=== PATIENT | female | born 1975 | race Caucasian/White ===

== ENCOUNTER 2017-06-30 22:47 | Emergency (ER) | payer SELFPAY ==
[2017-06-30 22:54] VITALS: BP 131/60; PULSE 93; RESP 18; TEMP 36.8; O2SAT 97; BMI 47.5
--- NOTE | 2017-06-30 23:01 | CT_ITS ---
CT abdomen pelvis wo con COMPARISON: CT scan abdomen pelvis without contrast 04/27/2012 HISTORY: ] Right upper Quadrant pain TECHNIQUE: Multiaxial scans obtained from hemidiaphragms the pelvic floor and were performed without IV or oral contrast. Sagittal and coronal reformats were evaluated as well. FINDINGS: The lower lung benz are clear. The liver is grossly normal in size of the distal prominent right lobe of the liver likely a Lety's lobe variant. Spleen stomach and pancreas appear grossly normal. There has been a previous cholecystectomy. The adrenal glands are normal. The kidneys are normal in size and there are no calculi and is no obstructive uropathy. Small bowel is normal. Do not definitely identify the appendix but there are no pericecal inflammatory changes. There is a tiny umbilical hernia containing fat only. There is a moderately large amount stool throughout the entire colon. The uterus is upper limits of normal in size and in the midline, the urinary bladder is partially decompressed. There is no free fluid in the pelvis. IMPRESSION: Findings as described, no acute abdominal or pelvic pathology identified, I agree the [facility] report.
[2017-06-30 23:15] LABS: Microscopic, Urine URINE MICROSCOPIC (MICROSCOPIC)
[2017-06-30 23:16] LABS: Appearance,Urine CLEAR (Clear); Bilirubin,Urine Negative (Negative); Blood, Urine Negative (Negative); Color,Urine YELLOW (Yellow); Glucose,Urine (UA) Negative (Negative); Ketones,Urine TRACE (Negative); Leukocyte Esterase,Urine Negative (Negative); Nitrate,Urine Negative (Negative); PH,Urine 5.5 (5.0-8.5); Protein,Urine Negative (Negative); Specific Gravity, Urine >= 1.030 (1.005-1.030); Urobilinogen,Urine 0.2 EU/dl (0.2)
[2017-06-30 23:17] LABS: Basophils % 0.3 % (0.1-2.0); Eosinophils # 0.3 K/mm3 (0.0-0.4); Eosinophils % 2.5 % (0.1-12.0); Hematocrit 43.4 % (37.0-47.0); Hemoglobin 13.6 g/dL (12.2-16.2); Lymphocytes # 3.7 K/mm3 (0.7-4.5); Lymphocytes % 31.3 K/mm3 (10-50); Mean Corpuscular HGB Conc 31.4 g/dL (31.8-35.4); Mean Corpuscular Hemoglobin 28.2 pg (27.0-31.2); Mean Corpuscular Volume 89.9 fl (81-99); Mean Platelet Volume 7.4 fl (7.4-10.4); Monocytes # 0.4 K/mm3 (0.1-1.0); Monocytes % 3.3 % (1.7-9.3); Neutrophils # 7.4 K/mm3 (1.8-7.8); Neutrophils % 62.7 % (37.0-80.0); Platelet Count 397 K/mm3 (142-424); Red Blood Count 4.83 M/mm3 (4.20-5.40); Red Cell Distribution Width 14.4 % (11.5-17.5); White Blood Count 11.9 K/mm3 (4.8-10.8)
[2017-06-30 23:27] LABS: Alanine Aminotransferase 37 U/L (12-78); Albumin Level 3.5 gm/dL (3.4-5.0); Albumin/Globulin Ratio 0.8 (1.1-1.8); Alkaline Phosphatase 119 U/L (46-116); Amylase 68 U/L (25-125); Anion Gap 14.4 mEq/L (5-15); Aspartate Amino Transferase 29 U/L (15-37); Bilirubin,Total 0.4 mg/dL (0.2-1.0); Blood Urea Nitrogen 23 mg/dL (7-18); Calcium 8.8 mg/dL (8.5-10.1); Carbon Dioxide 28 mmol/L (21.0-32.0); Chloride 99 mmol/L (98-107); Creatinine Clearance Estimated 70 mL/min (0-300); Creatinine,Serum 0.84 mg/dL (0.55-1.02); Estimated Glomerular Filt Rate 75 ml/min (>60); GFR (African American) 90 ML/MIN (>60); Globulin 4.2 gm/dl (1.3-3.2); Glucose 130 mg/dL (74-106); Lipase 209 u/L (73-393); Potassium 3.4 mmoL/L (3.5-5.1); Sodium 138 mmol/L (136-145); Total Protein,Serum 7.7 gm/dL (6.4-8.2)
[2017-06-30 23:57] LABS: Bacteria,Urine 1+ /lpf; Calcium Oxalate Crystals,Urine 1+ /lpf
--- NOTE | 2017-06-30 23:57 | HMH.EDNVD ---
ED Disposition Clinical Impression: Abdominal pain Qualifiers: Abdominal location: right upper quadrant Qualified Code(s): R10.11 - Right upper quadrant pain Disposition: Home, Self-Care Condition on Discharge: Good Instructions: DI for Acute Abdomen Additional Instructions: see pcp for follow up Referrals: Herbert Haro [Primary Care Provider] - - Critical Care Critical Care Time: No Attestation: On 06/30/17, the high probability of a clinically significant, sudden or life threatening deterioration of the following system(s) required my full and direct attention, intervention and personal management. The time I documented below is in addition to time spent performing reported procedures but includes the following listed in this critical care notation. Medical Decision Making - Spencer Inquiry Pt receiving controlled substance: No Vital Signs: 06/30/17 22:54 Temperature 98.2 F Temperature Source Oral Pulse Rate [Left Brachial] 93 H Respiratory Rate 18 Blood Pressure [Left Arm] 131/60 Blood Pressure Mean [Left Arm] 83 Blood Pressure Source [Left Arm] Automatic Cuff Blood Pressure Position [Left Arm] Sitting 02 Sat by Pulse Oximetry 97 Oxygen Delivery Method Room Air - Lab Data Lab results reviewed: Yes: I reviewed the patient's lab results. Lab Results 06/30/17 23:03: Urine Color Yellow, Urine Appearance Clear, Urine pH 5.5, Ur Specific Cross >= 1.030, Urine Protein Negative, Urine Glucose (UA) Negative, Urine Ketones Trace, Urine Blood Negative, Urine Nitrate Negative, Urine Bilirubin Negative, Urine Urobilinogen 0.2, Ur Leukocyte Esterase Negative, Urine RBC 3-5, Urine WBC 3-5, Ur Squamous Epith Cells 5-10, Calcium Oxalate Crystal 1+, Urine Bacteria 1+ 06/30/17 23:03: WBC 11.9 H, RBC 4.83, Hgb 13.6, Hct 43.4, MCV 89.9, MCH 28.2, MCHC 31.4 L, RDW 14.4, Plt Count 397, MPV 7.4, Neut % (Auto) 62.7, Lymph % (Auto) 31.3, [place] % (Auto) 3.3, Eos % (Auto) 2.5, Baso % (Auto) 0.3, Neut # (Auto) 7.4, Lymph # (Auto) 3.7, [place] # (Auto) 0.4, Eos # (Auto) 0.3, Baso # (Auto) 0.0 06/30/17 23:03: Sodium 138, Potassium 3.4 L, Chloride 99, Carbon Dioxide 28, Anion Gap 14.4, BUN 23 H, Creatinine 0.84, Estimated Creat Clear 70, Estimated GFR 75, Est GFR ( Amer) 90, Glucose 130 H, Calcium 8.8, Total Bilirubin 0.4, AST 29, ALT 37, Alkaline Phosphatase 119 H, Total Protein 7.7, Albumin 3.5, Globulin 4.2 H, Albumin/Globulin Ratio 0.8 L, Amylase 68, Lipase 209 Result diagrams: 06/30/17 23:03 06/30/17 23:03 Orders (Tests/Meds): ORDERS Category Date Time Status CT abdomen pelvis wo con Stat Cat Scan 06/30/17 23:01 Taken - CT Data CT Scan: Abdomen, Pelvis Time Received: 01:[address] Reviewed: Yes: I have viewed the radiologist's interpretation Preliminary Findings: Normal/NAD Nausea/Vomiting/Diarrhea HPI - General Chief complaint: Abdominal Pain Stated complaint: pain in right side Time Seen by Provider: 06/30/17 23:30 Mode of Arrival: Ambulatory Limitations: No Limitations Description of Symptoms (Recalled from ER Triage Doc. by RN): RUQ ABD PAIN THAT STARTED EARLIER TODAY AND HAS PROGRESSIVELY GOTTEN WORSE. REPORTS IT FEELS LIKE IT IS PULLING AND TUGGING APART . - History of Present Illness HPI Narrative: pt with 1 day hx of rt upper abd pain with nausea and worse with mov MD complaint: nausea Onset (ago): day(s) Associated Abdominal Pain: Yes Location of pain: RUQ Severity: moderate Consistency: intermittent - Related Data Home Medications Medication Instructions Recorded Confirmed atorvastatin 40 mg tablet 40 mg PO ONCE 06/08/17 06/30/17 empagliflozin 10 mg tablet 10 mg PO QAM 06/08/17 06/30/17 esomeprazole magnesium 20 mg 20 mg PO ONCE cap 06/08/17 06/30/17 capsule,delayed release metformin 500 mg tablet 500 mg PO BID 06/08/17 06/30/17 paroxetine 20 mg tablet 10 mg PO QAM 06/08/17 06/30/17 spironolactone 25 mg tablet 25 mg PO ONCE tab 06/08/17 06/30/17 Bisoprol/Hydrochloro
--- NOTE | 2017-07-01 00:01 | ED_ITS ---
ED Disposition Clinical Impression: Abdominal pain Qualifiers: Abdominal location: right upper quadrant Qualified Code(s): R10.11 - Right upper quadrant pain Disposition: Home, Self-Care Condition on Discharge: Good Instructions: DI for Acute Abdomen Additional Instructions: see pcp for follow up Referrals: Herbert Haro [Primary Care Provider] - - Critical Care Critical Care Time: No Attestation: On 06/30/17, the high probability of a clinically significant, sudden or life threatening deterioration of the following system(s) required my full and direct attention, intervention and personal management. The time I documented below is in addition to time spent performing reported procedures but includes the following listed in this critical care notation. Medical Decision Making - Spencer Inquiry Pt receiving controlled substance: No Vital Signs: 06/30/17 22:54 Temperature 98.2 F Temperature Source Oral Pulse Rate [Left Brachial] 93 H Respiratory Rate 18 Blood Pressure [Left Arm] 131/60 Blood Pressure Mean [Left Arm] 83 Blood Pressure Source [Left Arm] Automatic Cuff Blood Pressure Position [Left Arm] Sitting 02 Sat by Pulse Oximetry 97 Oxygen Delivery Method Room Air - Lab Data Lab results reviewed: Yes: I reviewed the patient's lab results. Lab Results 06/30/17 23:03: Urine Color Yellow, Urine Appearance Clear, Urine pH 5.5, Ur Specific [place] >= 1.030, Urine Protein Negative, Urine Glucose (UA) Negative, Urine Ketones Trace, Urine Blood Negative, Urine Nitrate Negative, Urine Bilirubin Negative, Urine Urobilinogen 0.2, Ur Leukocyte Esterase Negative, Urine RBC 3-5, Urine WBC 3-5, Ur Squamous Epith Cells 5-10, Calcium Oxalate Crystal 1+, Urine Bacteria 1+ 06/30/17 23:03: WBC 11.9 H, RBC 4.83, Hgb 13.6, Hct 43.4, MCV 89.9, MCH 28.2, MCHC 31.4 L, RDW 14.4, Plt Count 397, MPV 7.4, Neut % (Auto) 62.7, Lymph % (Auto ) 31.3, [place] % (Auto) 3.3, Eos % (Auto) 2.5, Baso % (Auto) 0.3, Neut # (Auto) 7.4, Lymph # (Auto) 3.7, [place] # (Auto) 0.4, Eos # (Auto) 0.3, Baso # (Auto) 0.0 06/30/17 23:03: Sodium 138, Potassium 3.4 L, Chloride 99, Carbon Dioxide 28, Anion Gap 14.4, BUN 23 H, Creatinine 0.84, Estimated Creat Clear 70, Estimated GFR 75, Est GFR ( Amer) 90, Glucose 130 H, Calcium 8.8, Total Bilirubin 0.4, AST 29, ALT 37, Alkaline Phosphatase 119 H, Total Protein 7.7, Albumin 3.5 , Globulin 4.2 H, Albumin/Globulin Ratio 0.8 L, Amylase 68, Lipase 209 Result diagrams: 06/30/17 23:03 06/30/17 23:03 Orders (Tests/Meds): ORDERS Category Date Time Status CT abdomen pelvis wo con Stat Cat Scan 06/30/17 23:01 Taken - CT Data CT Scan: Abdomen, Pelvis Time Received: 01:[address] Reviewed: Yes: I have viewed the radiologist's interpretation Preliminary Findings: Normal/NAD Nausea/Vomiting/Diarrhea HPI - General Chief complaint: Abdominal Pain Stated complaint: pain in right side Time Seen by Provider: 06/30/17 23:30 Mode of Arrival: Ambulatory Limitations: No Limitations Description of Symptoms (Recalled from ER Triage Doc. by RN): RUQ ABD PAIN THAT STARTED EARLIER TODAY AND HAS PROGRESSIVELY GOTTEN WORSE. REPORTS IT FEELS LIKE IT IS PULLING AND TUGGING APART . - History of Present Illness HPI Narrative: pt with 1 day hx of rt upper abd pain with nausea and worse with mov MD complaint: nausea Onset (ago): day(s) Associated Abdominal Pain: Yes Location of pain: RUQ S
[2017-07-01 01:13] VITALS: BP 136/74; PULSE 72; RESP 19; TEMP 36.8; O2SAT 96
== END 2017-07-01 01:14 | disposition home or self-care (01) ==
PROVIDERS: Emergency Provider Emergency Medicine; Family Provider Internal Medicine; PCP Internal Medicine
DX: R10.11 Right upper quadrant pain (principal); Z79.84 Long term (current) use of oral hypoglycemic drugs; E11.9 Type 2 diabetes mellitus without complications; K21.9 Gastro-esophageal reflux disease without esophagitis; E78.5 Hyperlipidemia, unspecified; I10 Essential (primary) hypertension; Z90.49 Acquired absence of other specified parts of digestive tract; Z87.891 Personal history of nicotine dependence; F32.9 Major depressive disorder, single episode, unspecified
CPT/HCPCS: 74176; 80053; 81001; 82150; 83690; 85025; 99283

== ENCOUNTER → 2017-11-09 13:43 | Outpatient (CLI) | payer OTHER, SELFPAY ==
--- NOTE | 2017-11-09 13:45 | MM_ITS ---
MM Dig mamm BI DX w/CAD COMPARISON: Digital mammograms 08/20/2015 and digital right mammogram 04/09/2016 INDICATION: There is a history of breast cancer patient's mother diagnosed at age 63. The patient complains of intermittent clear leakage left nipple. TECHNIQUE: Standard MLO and CC views were obtained of both breasts. FINDINGS: The breasts are composed primarily of fat with very minimal scattered fibroglandular densities in each breast. There is a stable round nodular density central portion of the right breast unchanged from previous exams and noted to be a small cyst on ultrasound performed 04/09/2016. There is a mole marker on each breast. There is no suspicious lesion and there are no suspicious microcalcifications. IMPRESSION: Fatty type breast parenchyma no suspicious lesion seen BI-RADS Category: 2 Benign Finding(s) RECOMMENDED FOLLOW-UP: 1YR - 1 YEAR FOLLOW-UP (A letter has been sent to the patient regarding results of the study.)
--- NOTE | 2017-11-09 13:45 | US_ITS ---
US transvaginal Ordering Physician: Chiara Vidal MD Patient Age: 42 years: Female HISTORY: ITS.REASON: US T/V - Pelvic Pain Severe cramping TECHNIQUE: Transvaginal pelvic ultrasound COMPARISON CT abdomen and pelvis FINDINGS : UTERUS. Slight retroverted. Normal sized. 7.4 cm length x 3.7 cm x 5.3 cm wide.. Moderate endometrial stripe is measured 7.6 mm AP & most evident towards fundus Ovaries within normal limits bilaterally with color Doppler normal flow. Right ovary 2.1 x 1.4 x 2.2 cm. Left ovary 2.2 x 1.6 x 1.0 cm No fluid in cul-de-sac IMPRESSION: Uterus slightly retroverted with moderate endometrial stripe Ovaries appear normal in size no fluid in cul-de-sac
== END ==
PROVIDERS: Family Provider Internal Medicine; PCP Internal Medicine; Visit Provider Obstetrics & Gynecology
DX: R10.2 Pelvic and perineal pain (principal); N64.4 Mastodynia; N64.52 Nipple discharge
CPT/HCPCS: 76830; 77066

== ENCOUNTER 2017-12-12 13:00 | Outpatient (RCR) | payer OTHER, SELFPAY ==
--- NOTE | 2017-12-05 13:47 | HMH.PTOPEV ---
PT Outpatient Evaluation Rehab PT Outpatient Evaluation Start: 12/05/17 13:36 Freq: Status: Active Protocol: Document 12/05/17 13:36 DANIELLE (Rec: 12/05/17 13:46 DANIELLE [id number]) Electronically Signed By Jacob Mccloud, PT 12/05/17 13:36 Outpatient Therapy Subjective History Subjective History Pt reports h/o chronic LBP since 2009, with most recent exacerbation beginning ~2 weeks insidious onset. Pt reports R>L sided LBP with intermittent radicular s/s down R LE into anterior/ lateral thigh area. Pt reports MRI of lumbar spine has revealed DDD, and disc buldges . Chief Complaint Pain Spasms Stiff Weakness Symptom Type Ache Throb Sharp Dull Symptoms Relieved By Prescription Meds Symptoms Aggravated By Standing Physical Activity Walking Lifting Prior Functional Limitations Lifting Housework Standing Walking Current Functional Limitations Lifting Housework Standing Walking Bending/Stooping Symptom Description Constant but Variable Level of pain today (0-10) 3 Pain scale - at its best (0-10) 2 Pain scale - at its worst (0-10) 10 Lumbopelvic Eval Posture Thoracic Spine Posture Standing Position Increased Kyphosis Lumbar Spine Posture Standing Position Increased Lordosis Assistive device Assistive Devices None / NA Gait Observation General Gait Pattern Observation Antalgic Gait Palapation tenderness bilateral thoracic spinal tenderness Yes: 3/4 lumbar spinal tenderness Yes: 3/4 paraspinal tenderness Yes: 3/4 buttock tenderness Yes: 4/4 Lumbar/Sacral Palpation Findings Tenderness Muscle Guarding Lumbar/Sacral Palpation Overall Comment hyper- B PIRI MM Accessory Movement T-spine Vertebrae Accessory Movements Central P/A [place] that Elicit Symptoms T10 bilateral T11 bilateral T12 bilateral L-spine Jaswinder
== END 2017-12-12 13:01 | disposition home or self-care (01) ==
LOC: PT 13:00
PROVIDERS: Family Provider Internal Medicine; PCP Internal Medicine; Visit Provider Internal Medicine
DX: M54.31 Sciatica, right side (principal)
CPT/HCPCS: 97010; 97014; 97035; 97110; 97163; G0283

== ENCOUNTER → 2018-05-05 09:35 | Outpatient (CLI) | payer OTHER, SELFPAY | PROVIDERS: PCP Internal Medicine; Visit Provider Internal Medicine | DX: R06.02 Shortness of breath (principal) | CPT/HCPCS: 94060; 94640 ==

== ENCOUNTER 2019-08-19 13:49 | Emergency (ER) | payer OTHER, SELFPAY ==
[2019-08-19 13:50] VITALS: BP 135/57; PULSE 81; RESP 18; TEMP 36.8; O2SAT 98; BMI 44.2
--- NOTE | 2019-08-19 14:00 | CT_ITS ---
PROCEDURE: CT CHEST WO CON CLINICAL INDICATION: PAIN Left-sided chest pain radiating into the COMPARISON: CT ABDOMEN PELVIS WO CON from 08/19/2019 TECHNIQUE: Axial images obtained with sagittal and coronal reformats. All CT scans at the facility use one or more dose reduction, viz: automated exposure control, ma/kV adjustment per patient size (including targeted exams where dose is matched to indication, i.e. head), or iterative reconstruction technique. FINDINGS: HEART AND MEDIASTINAL STRUCTURES: Unremarkable. LUNGS AND PLEURAL SPACES: There is a calcified granuloma in the lingula. The lungs are otherwise clear. BONY STRUCTURES: No acute bony abnormalities apparent. UPPER ABDOMEN: Fatty liver ADDITIONAL FINDINGS: No other significant abnormalities. IMPRESSION: No acute finding Dictated by: Eduardo Cavanaugh MD 08/20/2019 09:31 Electronically signed by Eduardo Cavanaugh MD in [place] 08/20/2019 09:31
--- NOTE | 2019-08-19 14:00 | CT_ITS ---
PROCEDURE: CT ABDOMEN PELVIS WO CON CLINICAL INDICATION: PAIN Abdominal pain, left upper quadrant pain radiating into the COMPARISON: ABDPELWO CT abdomen pelvis wo con from 07/01/2017 TECHNIQUE: Axial images obtained with sagittal and coronal reformats. All CT scans at the facility use one or more dose reduction, viz: automated exposure control, ma/kV adjustment per patient size (including targeted exams where dose is matched to indication, i.e. head), or iterative reconstruction technique. FINDINGS: LOWER THORAX: No acute finding ABDOMEN & PELVIS: There is a hepatomegaly measuring 25 cm cephalad caudad with diffuse hepatic steatosis. There are post cholecystectomy changes. The spleen, adrenal glands, pancreas, and kidneys have an unremarkable appearance. No renal or ureteral calculi. There are a few small periportal lymph nodes measuring up to 1.8 by 1.2 cm. No evidence of appendicitis. No intestinal obstruction or free air. No evidence of diverticulitis. No pelvic mass or abnormal fluid collection. No acute bony anomalies. Small umbilical hernia noted containing fat. Soft tissue edema is noted in the lumbar region centrally IMPRESSION: Hepatomegaly with fatty liver No acute finding. Dictated by: Eduardo Cavanaugh MD 08/20/2019 09:37 Electronically signed by Eduardo Cavanaugh MD in [place] 08/20/2019 09:37
--- NOTE | 2019-08-19 14:00 | HMH.EDGENADL ---
ED Disposition Clinical Impression: Atypical chest pain, Rib pain on left side Disposition: Home, Self-Care Condition on Discharge: Good - Critical Care Critical Care Time: No Attestation: On , the high probability of a clinically significant, sudden or life threatening deterioration of the following system(s) required my full and direct attention, intervention and personal management. The time I documented below is in addition to time spent performing reported procedures but includes the following listed in this critical care notation. Medical Decision Making - Medical Records Medical records reviewed: Yes: I reviewed the patient's medical records. - Spencer Inquiry Pt receiving controlled substance: No Vital Signs: 08/19/19 13:50 Temperature 98.3 F Temperature Source Oral Pulse Rate [Right Radial] 81 Respiratory Rate 18 Blood Pressure [Right Arm] 135/57 L Blood Pressure Mean [Right Arm] 83 Blood Pressure Source [Right Arm] Automatic Cuff Blood Pressure Position [Right Arm] Sitting 02 Sat by Pulse Oximetry 98 Oxygen Delivery Method Room Air - Lab Data Lab results reviewed: Yes: I reviewed the patient's lab results. Lab Results 08/19/19 15:00: WBC 12.3 H, RBC 4.69, Hgb 13.4, Hct 41.4, MCV 88.2, MCH 28.5, MCHC 32.3, RDW 14.8, Plt Count 383, MPV 7.7, Neut % (Auto) 66.8, Lymph % (Auto) 27.2, [place] % (Auto) 2.3, Eos % (Auto) 2.8, Baso % (Auto) 0.9, Neut # (Auto) 8.2 H, Lymph # (Auto) 3.4, [place] # (Auto) 0.3, Eos # (Auto) 0.4, Baso # (Auto) 0.1 08/19/19 15:00: Sodium 140, Potassium 3.6, Chloride 98, Carbon Dioxide 32 H, Anion Gap 13.6, BUN 12, Creatinine 0.60, Estimated Creat Clear 95, Estimated GFR 109, Est GFR ( Amer) 131, Glucose 170 H, Calcium 9.8, Troponin I < 0.01 Result diagrams: 08/19/19 15:00 08/19/19 15:00 Orders (Tests/Meds): ED MEDICATIONS Discontinued Medications Generic Name Dose Route Start Last Admin Trade Name Freq PRN Reason Stop Dose Admin Ketorolac Tromethamine 30 mg 08/19/19 15:05 08/19/19 15:13 Toradol 30mg/Ml Vial IV 08/19/19 15:06 30 mg ONCE ONE Administration Ondansetron HCl 4 mg 08/19/19 15:05 08/19/19 15:13 Zofran 4mg/2ml Vial IV 08/19/19 15:06 4 mg ONCE ONE Administration ORDERS Category Date Time Status CT abdomen pelvis wo con Stat Cat Scan 08/19/19 14:[address] chest wo con Stat Cat Scan 08/19/19 14:00 Taken Troponin I Q3H Lab 08/19/19 17:00 Ordered Troponin I Q3H Lab 08/19/19 20:00 Ordered - CT Data CT Scan: Abdomen, Chest Time Received: 16:00 Preliminary Findings: Normal/NAD - ECG Data Tracing #1 I reviewed this ECG and interpreted as documented below: Normal Sinus Rhythm: Yes General Adult HPI - General Chief complaint: PAIN Stated complaint: PAIN Time Seen by Provider: 08/19/19 14:01 Mode of Arrival: Wheelchair Limitations: No Limitations Description of Symptoms (Recalled from ER Triage Doc. by RN): PT HAD TO BE ASSISTED OUT OF CAR VIA W/C BY NURSE. 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 PT DENIES ANY KNOWN INJURY OR STRAINEOUS ACTIVITY. - History of Present Illness HPI narrative: 44-year-old female presents with left upper quadrant pain extending up to the sixth rib on her chest. She states this pain started about 20 minutes prior to arrival here in the ED. She describes the pain as sharp. She rates the pain 7 out of 10. She states exacerbating factors include movement and deep breaths. Alleviating factors include rest. Patient did state that she has had TIAs in the past but has not had any cardiac history but is an uncontrolled diabetic, uncontrolled hypertension, and on cold controlled hyperlipidemic. She denies any recent fever shakes or chills she denies any nausea vomiting diarrhea she did not denies any sore throat headache myalgias arthralgias. - Related Data Home Medication
--- NOTE | 2019-08-19 14:06 | ECG_ITS ---
APPROVED REPORT Exam: Resting ECG HR:78 bpm ECG Measurements Heart Rate 78 AXES MS 186 P 41 QRSd 78 QRS 40 QT 366 T 28 QTc 417 <Conclusion> Normal sinus rhythm Normal ECG Electronically signed by : Grant Riley, 08/20/2019 20:58:58
--- NOTE | 2019-08-19 14:08 | PC.NURSE ---
PT TO RAD
[2019-08-19 15:13] LABS: Basophils # 0.1 K/mm3 (0-0.2); Basophils % 0.9 % (0.1-2.0); Eosinophils # 0.4 K/mm3 (0.0-0.4); Eosinophils % 2.8 % (0.1-12.0); Hematocrit 41.4 % (37.0-47.0); Hemoglobin 13.4 g/dL (12.2-16.2); Lymphocytes # 3.4 K/mm3 (0.7-4.5); Lymphocytes % 27.2 % (10-50); Mean Corpuscular HGB Conc 32.3 g/dL (31.8-35.4); Mean Corpuscular Hemoglobin 28.5 pg (27.0-31.2); Mean Corpuscular Volume 88.2 fl (81-99); Mean Platelet Volume 7.7 fl (7.4-10.4); Monocytes # 0.3 K/mm3 (0.1-1.0); Monocytes % 2.3 % (1.7-9.3); Neutrophils # 8.2 K/mm3 (1.8-7.8); Neutrophils % 66.8 % (37.0-80.0); Platelet Count 383 K/mm3 (142-424); Red Blood Count 4.69 M/mm3 (4.20-5.40); Red Cell Distribution Width 14.8 % (11.5-17.5); White Blood Count 12.3 K/mm3 (4.8-10.8)
[2019-08-19 15:20] LABS: Anion Gap 13.6 mEq/L (5-15); Blood Urea Nitrogen 12 mg/dl (7-17); Calcium 9.8 mg/dl (8.4-10.2); Carbon Dioxide 32 mmol/L (22.0-30.0); Chloride 98 mmol/L (98-107); Creatinine Clearance Estimated 95 mL/min (50-200); Estimated Glomerular Filt Rate 109 ml/min (>60); GFR (African American) 131 ML/MIN (>60); Glucose 170 mg/dl (74-100); Potassium 3.6 mmoL/L (3.5-5.1); Sodium 140 mmol/L (136-145)
--- NOTE | 2019-08-19 15:21 | PC.NURSE ---
CALLED FOR AN UPDATE
[2019-08-19 15:34] LABS: Troponin I < 0.01 ng/ml (0.00-0.034)
[2019-08-19 16:35] VITALS: BP 132/78; PULSE 78; RESP 20; TEMP 36.8; O2SAT 98
== END 2019-08-19 16:36 | disposition home or self-care (01) ==
PROVIDERS: Emergency Provider Family Medicine; PCP Internal Medicine
DX: R07.89 Other chest pain (principal); F41.8 Other specified anxiety disorders; E11.65 Type 2 diabetes mellitus with hyperglycemia; I10 Essential (primary) hypertension; E78.5 Hyperlipidemia, unspecified; K21.9 Gastro-esophageal reflux disease without esophagitis
CPT/HCPCS: 71250; 74176; 80048; 84484; 85025; 93005; 96374; 96375; 99283; J2405

== ENCOUNTER 2020-04-23 11:29 | Emergency (ER) | payer OTHER, SELFPAY ==
[2020-04-23 11:29] VITALS: BP 139/79; PULSE 91; RESP 16; TEMP 36.2; O2SAT 100; BMI 42.6
--- NOTE | 2020-04-23 11:57 | XR_ITS ---
PROCEDURE: XR CHEST PORTABLE CLINICAL HISTORY: COUGH/TESTING FOR COVID COMPARISON: CR CXR2 CHEST-AP VIEW ONLY from 04/27/2012 CR CXR CHEST(2 VIEWS-NOT PORTABLE) from 11/01/[address] CHEST WO CON from 08/19/2019 FINDINGS: The cardiomediastinal silhouette and pulmonary vascularity are within normal limits. The lungs are clear without infiltrates, suspicious nodules, or pleural effusions. No acute bony abnormalities. IMPRESSION: No acute findings. Dictated by: Eduardo Cavanaugh MD 04/23/2020 13:34 Eduardo Cavanaugh MD in [place] 04/23/2020 13:34
--- NOTE | 2020-04-23 12:13 | HMH.EDUTC ---
[facility] [place] Disposition Clinical Impression: Exposure to COVID-19 virus, Viral syndrome Acute bronchitis Qualifiers: Bronchitis organism: unspecified organism Qualified Code(s): J20.9 - Acute bronchitis, unspecified Disposition: Home, Self-Care Condition on Discharge: Good Instructions: DI for COVID-19 (Suspected or Confirmed ), Preventing the Spread of Coronavirus Discharge Instructions Additional Instructions: Drink plenty of fluids. Take tylenol for pain or fever. Return if you begin to have difficulty breathing. Follow up with your regular doctor. GO TO THE ER FOR ANY WORSENING SYMPTOMS Prescriptions: Albuterol Sulfate [Albuterol Sulfate Hfa] 2 puffs IH Q6HP PRN 30 Days #1 hfa.aer.ad PRN Reason: Shortness Of Breath Transmission Status: Received by [id number] Benzonatate [Tessalon Perle 100mg Cap] 100 mg PO TIDP PRN #30 cap PRN Reason: Cough Transmission Status: Received by [facility] Azithromycin [Z-Mic 250mg Tab*] 250 mg PO UD DOSE PK #6 tab Transmission Status: Received by [facility] Referrals: Herbert Haro [Primary Care Provider] - Time of Disposition: 12:28 Medical Decision Making - Medical Records Medical records reviewed: No: I reviewed the patient's medical records. - Spencer Inquiry Pt receiving controlled substance: No Vital Signs: 04/23/20 11:29 04/23/20 12:29 Temperature 97.2 F L 97.2 F L Temperature Source Oral Oral Pulse Rate 91 H Pulse Rate [Right] 91 H Respiratory Rate 16 16 Blood Pressure 139/79 Blood Pressure [Right Arm] 139/79 Blood Pressure Mean [Right Arm] 99 02 Sat by Pulse Oximetry 100 [facility] [place] HPI - General Stated complaint: Cough Time Seen by Provider: 04/23/20 12:13 Mode of Arrival: Ambulatory Source of Information: Patient Limitations: No Limitations Description of Symptoms (Recalled from Triage Doc. by RN): pt requested COVID test. pt c/o cough and SOA foe over a week HEENT Symptoms (Recalled from RN notes): No Resp Symptoms (Recalled from RN notes): Yes Skin Symptoms (Recalled from RN notes): No MS Symptoms (Recalled from RN notes): No Functional Status (Recalled from RN notes): wnl - History of Present Illness Provider Complaint: She states that she has been having a cough and shortness of breath for the past 3 days. - Related Data Home Medications Medication Instructions Recorded Confirmed esomeprazole magnesium 20 mg 20 mg PO DAILY cap 06/08/17 06/30/17 capsule,delayed release metformin 500 mg tablet 500 mg PO BID 06/08/17 06/30/17 paroxetine HCl 20 mg tablet 10 mg PO QAM 06/08/17 06/30/17 ascorbic acid (vitamin C) 1,000 mg 1 g PO DAILY tab 11/07/17 tablet dapagliflozin 5 mg tablet 5 mg PO QAM 11/07/17 famotidine 20 mg tablet 20 mg PO QHS 11/07/17 lidocaine 5 % topical cream 1 applic TOPICAL ONCE 11/07/17 naproxen 500 mg tablet 500 mg PO BID 11/07/17 terbinafine HCl 250 mg tablet 250 mg PO ONCE PRN 11/07/17 Previous Rx's Medication Instructions Recorded spironolactone 25 mg tablet 25 mg PO DAILY #90 tab 07/05/17 bisoprolol 2.5 1 tab PO DAILY #30 tab 10/16/18 mg-hydrochlorothiazide 6.25 mg tablet atorvastatin 40 mg tablet 40 mg PO DAILY #90 tab 01/12/19 Amoxicillin/Potassium Clav 1 tab PO Q12H 7 Days #14 tab 03/04/19 [Augmentin 875-125 Tablet] prednisoLONE acetate [Pred Forte 1 drp EYE-RIGHT Q6H #1 drops.susp 03/04/19 1% opth solution 5mL] Albuterol Sulfate [Albuterol 2 puffs IH Q6HP PRN 30 Days #1 04/23/20 Sulfate Hfa] hfa.aer.ad Azithromycin [Z-Mic 250mg Tab*] 250 mg PO UD DOSE PK #6 tab 04/23/20 Benzonatate [Tessalon Perle 100mg 100 mg PO TIDP PRN #30 cap 04/23/20 Cap] Allergies Allergy/AdvReac Type Severity Reaction Status Date / Time Tetracyclines [TETRACYCLINES] Allergy Unknown Hives Verified 04/23/20 12:00 - Worker's Comp Is this a Worker's Comp case?: No Is this an [facility] Worker's Comp?: No Is this a [facility] Worker's Comp?: No [facility] History - Hepa
[2020-04-23 12:29] VITALS: BP 139/79; PULSE 91; RESP 16; TEMP 36.2; O2SAT 100
== END 2020-04-23 12:43 | disposition home or self-care (01) ==
PROVIDERS: Emergency Provider Nurse Practitioner Family; PCP Internal Medicine
DX: Z20.822 Contact with and (suspected) exposure to COVID-19 (principal); B34.9 Viral infection, unspecified; J20.9 Acute bronchitis, unspecified; F41.8 Other specified anxiety disorders; I10 Essential (primary) hypertension; K21.9 Gastro-esophageal reflux disease without esophagitis; E78.5 Hyperlipidemia, unspecified; E11.9 Type 2 diabetes mellitus without complications; Z79.899 Other long term (current) drug therapy
CPT/HCPCS: 71045; 99202; G0463; U0003

== ENCOUNTER → 2020-05-12 09:51 | Outpatient (CLI) | payer OTHER, SELFPAY ==
--- NOTE | 2020-05-12 09:52 | MM_ITS ---
PROCEDURE: MM DIG SCREENING MAMM BI W/CAD Digital Breast Tomosynthesis Included CLINICAL INDICATION: SCREENING There is a history of breast cancer patient's mother diagnosed after menopause and the patient's paternal aunt. COMPARISON: MG DMDB DIG MAMM-DX ELLA from 08/20/2015 MG DMDXUR DIG MAMM-DX UNI-RT W/CAD from 04/09/2016 MG DXBI MM Dig mamm BI DX w/CAD from 11/09/2017 TECHNIQUE: Standard CC and MLO images and 3D Tomosynthesis was obtained. R2 CAD reviewed. FINDINGS: The breasts are composed primarily of fat with very minimal scattered fibroglandular densities in each breast. There is a stable benign-appearing nodular density central portion right breast. There is another small benign-appearing nodular density outer quadrant right breast which is stable. There is no suspicious lesion in either breast and no suspicious microcalcifications. There are fatty replaced nodes in both axilla. IMPRESSION: Fatty type breast parenchyma with no suspicious lesions seen BI-RAD Category: 2 Benign Finding(s) FOLLOW-UP: 1YR 1 Year Follow-up (A letter has been sent to the patient regarding results of the study.) Dictated by: Dr. Shilo Avelar MD 05/14/2020 10:25 Dr. Shilo Avelar MD in [place] 05/14/2020 10:25
== END ==
PROVIDERS: PCP Internal Medicine; Visit Provider Internal Medicine
DX: Z12.31 Encounter for screening mammogram for malignant neoplasm of breast (principal)
CPT/HCPCS: 77063; 77067

== ENCOUNTER → 2020-08-19 15:28 | Outpatient (CLI) | payer OTHER, SELFPAY ==
[2020-08-19 16:07] LABS: Hemoglobin A1C 6.8 % (4.0-6.0)
[2020-08-19 16:32] LABS: Alanine Aminotransferase 48 U/L (12-78); Albumin Level 4.3 g/dl (3.5-5.0); Albumin/Globulin Ratio 1.7 (1.1-1.8); Alkaline Phosphatase 110 U/L (38-126); Anion Gap 12.5 mEq/L (5-15); Aspartate Amino Transferase 54 U/L (14-36); Bilirubin,Total 0.4 mg/dl (0.2-1.3); Blood Urea Nitrogen 11 mg/dl (7-17); Calcium 9.5 mg/dl (8.4-10.2); Carbon Dioxide 29 mmol/L (22.0-30.0); Chloride 98 mmol/L (98-107); Chol/HDL Ratio 6.5 (1-3.5); Cholesterol 253 mg/dl (140-200); Estimated Glomerular Filt Rate 78 ml/min (>60); GFR (African American) 94 ML/MIN (>60); Globulin 2.6 g/dL (1.3-3.2); Glucose 106 mg/dl (74-100); HDL Cholesterol 39 mg/dl (40-60); Potassium 4.5 mmoL/L (3.5-5.1); Sodium 135 mmol/L (136-145); Total Protein,Serum 6.9 g/dl (6.3-8.2)
[2020-08-19 16:43] LABS: Direct LDL Cholesterol 149.26 mg/dL (100-129)
[2020-08-19 17:27] LABS: Triglycerides 585 mg/dl (30-150)
== END ==
PROVIDERS: Visit Provider Internal Medicine
DX: E11.42 Type 2 diabetes mellitus with diabetic polyneuropathy (principal); E78.5 Hyperlipidemia, unspecified; I10 Essential (primary) hypertension; Z79.84 Long term (current) use of oral hypoglycemic drugs
CPT/HCPCS: 80053; 80061; 83036

== ENCOUNTER → 2020-09-23 14:26 | Outpatient (CLI) | payer OTHER, SELFPAY ==
--- NOTE | 2020-09-23 14:37 | ECG_ITS ---
APPROVED REPORT Exam: Resting ECG HR:62 bpm ECG Measurements Heart Rate 62 AXES [place] 184 P 39 QRSd 80 QRS 81 QT 392 T 43 QTc 397 Conclusion Normal sinus rhythm Normal ECG Electronically signed by : Herbert Haro, 10/15/2020 11:19:33
== END ==
PROVIDERS: PCP Internal Medicine; Visit Provider Internal Medicine
DX: R00.0 Tachycardia, unspecified (principal); R00.1 Bradycardia, unspecified
CPT/HCPCS: 93005; 93270

== ENCOUNTER 2020-10-02 22:12 | Emergency (ER) | payer OTHER, SELFPAY ==
[2020-10-02 22:13] VITALS: BP 143/84; PULSE 83; RESP 18; TEMP 36.9; O2SAT 97; BMI 42.0
[2020-10-02 22:29] LABS: POC Glucose,Bedside 324 (70-110)
[2020-10-02 22:39] LABS: Microscopic, Urine URINE MICROSCOPIC (MICROSCOPIC)
[2020-10-02 22:42] LABS: Basophils # 0.1 K/mm3 (0-0.2); Basophils % 0.5 % (0.1-2.0); Eosinophils # 0.6 K/mm3 (0.0-0.4); Eosinophils % 4.2 % (0.1-12.0); Hematocrit 43.3 % (37.0-47.0); Hemoglobin 14.1 g/dL (12.2-16.2); Lymphocytes # 4.4 K/mm3 (0.7-4.5); Lymphocytes % 33.4 % (10-50); Mean Corpuscular HGB Conc 32.7 g/dL (31.8-35.4); Mean Corpuscular Hemoglobin 28.9 pg (27.0-31.2); Mean Corpuscular Volume 88.5 fl (81-99); Mean Platelet Volume 7.9 fl (7.4-10.4); Monocytes # 0.3 K/mm3 (0.1-1.0); Monocytes % 2.4 % (1.7-9.3); Neutrophils # 7.8 K/mm3 (1.8-7.8); Neutrophils % 59.5 % (37.0-80.0); Platelet Count 349 K/mm3 (142-424); Red Blood Count 4.89 M/mm3 (4.20-5.40); Red Cell Distribution Width 14.9 % (11.5-17.5); White Blood Count 13.2 K/mm3 (4.8-10.8)
[2020-10-02 22:44] LABS: Appearance,Urine CLEAR (Clear); Bilirubin,Urine Negative (Negative); Blood, Urine Negative (Negative); Color,Urine YELLOW (Yellow); Glucose,Urine (UA) 3+ (Negative); Ketones,Urine Negative (Negative); Leukocyte Esterase,Urine Negative (Negative); Nitrate,Urine Negative (Negative); Protein,Urine Negative (Negative); Specific Gravity, Urine 1.015 (1.005-1.030); Urobilinogen,Urine 0.2 EU/dl (0.2)
[2020-10-02 22:49] LABS: Alanine Aminotransferase 32 U/L (12-78); Albumin Level 4.2 g/dl (3.5-5.0); Albumin/Globulin Ratio 1.6 (1.1-1.8); Alkaline Phosphatase 107 U/L (38-126); Anion Gap 11.7 mEq/L (5-15); Aspartate Amino Transferase 35 U/L (14-36); Bilirubin,Total 0.3 mg/dl (0.2-1.3); Blood Urea Nitrogen 9 mg/dl (7-17); Calcium 8.8 mg/dl (8.4-10.2); Carbon Dioxide 29 mmol/L (22.0-30.0); Chloride 102 mmol/L (98-107); Creatinine Clearance Estimated 94 mL/min (50-200); Estimated Glomerular Filt Rate 108 ml/min (>60); GFR (African American) 131 ML/MIN (>60); Globulin 2.7 g/dL (1.3-3.2); Glucose 365 mg/dl (74-100); Potassium 3.7 mmoL/L (3.5-5.1); Sodium 139 mmol/L (136-145); Total Protein,Serum 6.9 g/dl (6.3-8.2)
[2020-10-02 22:49] LABS: Bacteria,Urine Trace /lpf; Squamous Epithelial Cell,Urine Occasional #/hpf (0-5); WBC,Urine Occasional #/hpf (0-3)
[2020-10-02 22:58] LABS: Acetone, Serum (Rapid) None Detected (None Detect)
--- NOTE | 2020-10-02 23:01 | HMH.EDGENADL ---
ED Disposition Clinical Impression: Hyperglycemia without ketosis Disposition: Home, Self-Care Condition on Discharge: Good Instructions: DI for Hyperglycemia -- Adult Additional Instructions: fluids and call pcp in am Referrals: Herbert Haro [Primary Care Provider] - - Critical Care Critical Care Time: No Attestation: On 10/02/20, the high probability of a clinically significant, sudden or life threatening deterioration of the following system(s) required my full and direct attention, intervention and personal management. The time I documented below is in addition to time spent performing reported procedures but includes the following listed in this critical care notation. Medical Decision Making - Medical Records Medical records reviewed: Yes: I reviewed the patient's medical records. - Spencer Inquiry Pt receiving controlled substance: No Vital Signs: 10/02/20 22:13 Temperature 98.4 F Temperature Source Oral Pulse Rate [Right] 83 Respiratory Rate 18 Blood Pressure [Right Arm] 143/84 H Blood Pressure Mean [Right Arm] 103 02 Sat by Pulse Oximetry 97 - Lab Data Lab results reviewed: Yes: I reviewed the patient's lab results. Lab Results 10/02/20 22:21: POC Glucose 324 H* 10/02/20 22:30: Urine Color Yellow, Urine Appearance Clear, Urine pH 6.0, Ur Specific [place] 1.015, Urine Protein Negative, Urine Glucose (UA) 3+, Urine Ketones Negative, Urine Blood Negative, Urine Nitrate Negative, Urine Bilirubin Negative, Urine Urobilinogen 0.2, Ur Leukocyte Esterase Negative, Urine WBC Occasional, Ur Squamous Epith Cells Occasional, Urine Bacteria Trace 10/02/20 22:33: WBC 13.2 H, RBC 4.89, Hgb 14.1, Hct 43.3, MCV 88.5, MCH 28.9, MCHC 32.7, RDW 14.9, Plt Count 349, MPV 7.9, Neut % (Auto) 59.5, Lymph % (Auto) 33.4, [place] % (Auto) 2.4, Eos % (Auto) 4.2, Baso % (Auto) 0.5, Neut # (Auto) 7.8, Lymph # (Auto) 4.4, [place] # (Auto) 0.3, Eos # (Auto) 0.6 H, Baso # (Auto) 0.1, ESR 25 H 10/02/20 22:33: Sodium 139, Potassium 3.7, Chloride 102, Carbon Dioxide 29, Anion Gap 11.7, BUN 9, Creatinine 0.60, Estimated Creat Clear 94, Estimated GFR 108, Est GFR ( Amer) 131, Glucose 365 H, Calcium 8.8, Total Bilirubin 0.3, AST 35, ALT 32, Alkaline Phosphatase 107, C-Reactive Protein 8.0 H, Total Protein 6.9, Albumin 4.2, Globulin 2.7, Albumin/Globulin Ratio 1.6, Procalcitonin 0.063, Acetone Level None detected Result diagrams: 10/02/20 22:33 10/02/20 22:33 Orders (Tests/Meds): ED MEDICATIONS Generic Name Dose Route Start Last Admin Trade Name Freq PRN Reason Stop Dose Admin Sodium Chloride 1,000 mls @ 999 mls/hr 10/02/20 22:45 10/02/20 22:36 Sod Chlor 0.9% 1000ml Bag IV 10/02/20 23:45 999 mls/hr .Q1H1M RADHA Administration Discontinued Medications Generic Name Dose Route Start Last Admin Trade Name Freq PRN Reason Stop Dose Admin Ondansetron HCl 4 mg 10/02/20 22:33 10/02/20 22:36 Ondansetron 4mg/2ml Vial IV 10/02/20 22:34 4 mg ONCE ONE Administration Medical Decision Narrative: improved with fluids General Adult HPI - General Chief complaint: Hyper/Hypoglycemia Stated complaint: diabetic sugar 422 Time Seen by Provider: 10/02/20 23:00 Mode of Arrival: Wheelchair Source of Information: Patient, Spouse, Medical Record Limitations: No Limitations Description of Symptoms (Recalled from ER Triage Doc. by RN): pt c/o of n/v, weakness and check for blood sugar was 422. - History of Present Illness HPI narrative: pt with elevated glu - has been off meds- no fever and no vomiting Onset (ago): hour(s) Severity: moderate Associated symptoms: denies other symptoms - Related Data Home Medications Medication Instructions Recorded Confirmed esomeprazole magnesium 20 mg 20 mg PO DAILY cap 06/08/17 10/02/20 capsule,delayed release metformin 500 mg tablet 1,000 mg PO BID 06/08/17 10/02/20 paroxetine HCl 20 mg tablet 10 mg PO QAM 06/08/17 10/02/20 Empagliflozin/Linagliptin 1 tab PO
[2020-10-02 23:07] LABS: Procalcitonin 0.063 ng/mL (0.0-2.0)
[2020-10-02 23:14] LABS: Erythrocyte Sedimentation Rate 25 mm/hr (0-20)
[2020-10-02 23:25] LABS: POC Glucose,Bedside 280 (70-110)
[2020-10-02 23:30] VITALS: BP 112/62; PULSE 77; O2SAT 97
[2020-10-02 23:34] VITALS: BP 135/71; PULSE 81; RESP 18; TEMP 36.9; O2SAT 97
== END 2020-10-02 23:35 | disposition home or self-care (01) ==
PROVIDERS: Emergency Provider Emergency Medicine; PCP Internal Medicine
DX: E11.65 Type 2 diabetes mellitus with hyperglycemia (principal); K21.9 Gastro-esophageal reflux disease without esophagitis; E78.5 Hyperlipidemia, unspecified; I10 Essential (primary) hypertension; F41.8 Other specified anxiety disorders; Z79.899 Other long term (current) drug therapy
CPT/HCPCS: 80053; 81001; 82009; 82962; 84145; 85025; 85651; 86140; 96365; 96375; 99282; J2405

== ENCOUNTER 2020-10-27 21:40 | Emergency (ER) | payer OTHER, SELFPAY ==
--- NOTE | 2020-10-27 21:38 | ECG_ITS ---
APPROVED REPORT Exam: Resting ECG HR:70 bpm ECG Measurements Heart Rate 70 AXES [place] 158 P 33 QRSd 76 QRS 44 QT 374 T 30 QTc 403 Conclusion Normal sinus rhythm Normal ECG Electronically signed by : Grant Riley, 10/29/2020 21:39:36
[2020-10-27 21:40] VITALS: BP 136/72; PULSE 73; RESP 16; TEMP 36.8; O2SAT 98; BMI 41.7
--- NOTE | 2020-10-27 21:53 | XR_ITS ---
PROCEDURE INFORMATION: Exam: XR Chest Exam date and time: 10/27/2020 9:53 PM Age: 45 years old Clinical indication: Chest pressure; Patient HX: Chest pain TECHNIQUE: Imaging protocol: XR of the chest. Views: 2 views. COMPARISON: CR XR CHEST PORTABLE 04/23/2020 12:04 PM FINDINGS: Lungs: Unremarkable. No consolidation. Pleural spaces: Unremarkable. No pleural effusion. No pneumothorax. Heart/Mediastinum: Unremarkable. No cardiomegaly. Bones/joints: Unremarkable. IMPRESSION: No acute findings.
[2020-10-27 22:02] VITALS: BP 156/80; PULSE 77; RESP 14; O2SAT 95
[2020-10-27 22:02] LABS: Basophils # 0.3 K/mm3 (0-0.2); Basophils % 1.8 % (0.1-2.0); Eosinophils # 0.5 K/mm3 (0.0-0.4); Eosinophils % 3.4 % (0.1-12.0); Hematocrit 47.3 % (37.0-47.0); Hemoglobin 15.3 g/dL (12.2-16.2); Lymphocytes # 4.9 K/mm3 (0.7-4.5); Mean Corpuscular HGB Conc 32.4 g/dL (31.8-35.4); Mean Corpuscular Hemoglobin 28.3 pg (27.0-31.2); Mean Corpuscular Volume 87.3 fl (81-99); Mean Platelet Volume 7.9 fl (7.4-10.4); Monocytes # 0.3 K/mm3 (0.1-1.0); Monocytes % 2.4 % (1.7-9.3); Neutrophils % 57.3 % (37.0-80.0); Platelet Count 389 K/mm3 (142-424); Red Blood Count 5.42 M/mm3 (4.20-5.40); Red Cell Distribution Width 15.1 % (11.5-17.5); White Blood Count 13.9 K/mm3 (4.8-10.8)
[2020-10-27 22:11] LABS: Anion Gap 16.7 mEq/L (5-15); Blood Urea Nitrogen 18 mg/dl (7-17); Calcium 9.8 mg/dl (8.4-10.2); Carbon Dioxide 29 mmol/L (22.0-30.0); Chloride 97 mmol/L (98-107); Creatinine Clearance Estimated 80 mL/min (50-200); Estimated Glomerular Filt Rate 90 ml/min (>60); GFR (African American) 109 ML/MIN (>60); Glucose 140 mg/dl (74-100); Potassium 3.7 mmoL/L (3.5-5.1); Sodium 139 mmol/L (136-145)
[2020-10-27 22:16] LABS: C-Reactive Protein 7.7 mg/L (0-4)
[2020-10-27 22:29] LABS: Procalcitonin 0.057 ng/mL (0.0-2.0)
[2020-10-27 22:31] VITALS: BP 132/76; PULSE 71; RESP 15; O2SAT 96
[2020-10-27 22:37] LABS: Troponin I < 0.01 ng/ml (0.00-0.034)
[2020-10-27 23:00] VITALS: BP 114/61; PULSE 74; RESP 16; O2SAT 95
--- NOTE | 2020-10-27 23:26 | PC.NURSE ---
went in to assess pt and she advises that she is having some numbness and tingling now in her left leg. Notified and added head CT. Notified rad
[2020-10-27 23:31] VITALS: BP 130/70; PULSE 70; RESP 15; O2SAT 96
[2020-10-28 00:01] VITALS: BP 123/69; PULSE 77; RESP 15; O2SAT 96
--- NOTE | 2020-10-28 00:18 | HMH.EDGENADL ---
ED Disposition Clinical Impression: Upper extremity pain Qualifiers: Laterality: left Qualified Code(s): M79.602 - Pain in left arm Disposition: Home, Self-Care Condition on Discharge: Good Instructions: DI for Acute Pain -- Adult Additional Instructions: see card this am Referrals: Herbert Haro [Primary Care Provider] - - Critical Care Critical Care Time: No Attestation: On 10/27/20, the high probability of a clinically significant, sudden or life threatening deterioration of the following system(s) required my full and direct attention, intervention and personal management. The time I documented below is in addition to time spent performing reported procedures but includes the following listed in this critical care notation. Medical Decision Making - Medical Records Medical records reviewed: Yes: I reviewed the patient's medical records. - Spencer Inquiry Pt receiving controlled substance: No Vital Signs: 10/27/20 21:40 10/27/20 22:02 10/27/20 22:31 Temperature 98.3 F Temperature Source Oral Pulse Rate 77 71 Pulse Rate [Right] 73 Respiratory Rate 16 14 15 Blood Pressure 156/80 H 132/76 Blood Pressure [Right Arm] 136/72 Blood Pressure Mean [Right Arm] 93 Blood Pressure Source [Right Arm] Automatic Cuff Blood Pressure Position [Right Arm] Sitting 02 Sat by Pulse Oximetry 98 95 96 Oxygen Delivery Method Room Air 10/27/20 23:00 10/27/20 23:31 10/28/20 00:01 Temperature Temperature Source Pulse Rate 74 70 77 Pulse Rate [Right] Respiratory Rate 16 15 15 Blood Pressure 114/61 130/70 123/69 Blood Pressure [Right Arm] Blood Pressure Mean [Right Arm] Blood Pressure Source [Right Arm] Blood Pressure Position [Right Arm] 02 Sat by Pulse Oximetry 95 96 96 Oxygen Delivery Method 10/28/20 00:30 10/28/20 01:00 Temperature Temperature Source Pulse Rate 69 69 Pulse Rate [Right] Respiratory Rate 13 12 Blood Pressure 116/66 132/78 Blood Pressure [Right Arm] Blood Pressure Mean [Right Arm] Blood Pressure Source [Right Arm] Blood Pressure Position [Right Arm] 02 Sat by Pulse Oximetry 96 96 Oxygen Delivery Method - Lab Data Lab results reviewed: Yes: I reviewed the patient's lab results. Lab Results 10/27/20 21:55: WBC 13.9 H, RBC 5.42 H, Hgb 15.3, Hct 47.3 H, MCV 87.3, MCH 28.3, MCHC 32.4, RDW 15.1, Plt Count 389, MPV 7.9, Neut % (Auto) 57.3, Lymph % (Auto) 35.0, [place] % (Auto) 2.4, Eos % (Auto) 3.4, Baso % (Auto) 1.8, Neut # (Auto) 8.0 H, Lymph # (Auto) 4.9 H, [place] # (Auto) 0.3, Eos # (Auto) 0.5 H, Baso # (Auto) 0.3 H 10/27/20 21:55: Sodium 139, Potassium 3.7, Chloride 97 L, Carbon Dioxide 29, Anion Gap 16.7 H, BUN 18 H, Creatinine 0.70, Estimated Creat Clear 80, Estimated GFR 90, Est GFR ( Amer) 109, Glucose 140 H, Calcium 9.8, Troponin I < 0.01, C-Reactive Protein 7.7 H 10/27/20 21:55: ESR 22 H 10/27/20 21:55: Procalcitonin 0.057 10/28/20 00:30: Troponin I < 0.01 Result diagrams: 10/27/20 21:55 10/27/20 21:55 Orders (Tests/Meds): ED MEDICATIONS Discontinued Medications Generic Name Dose Route Start Last Admin Trade Name Freq PRN Reason Stop Dose Admin Aspirin 243 mg 10/27/20 21:53 10/27/20 22:00 Aspirin 81mg Chewable Tablet PO 10/27/20 21:54 243 mg ONCE ONE Administration ORDERS Category Date Time Status Troponin I Q3H Lab 10/28/20 04:00 Ordered - Radiology Data #1 Image(s): Chest Image Reviewed: Yes I reviewed the patient's radiology image Preliminary Findings: Normal/NAD - ECG Data Tracing #1 Normal Sinus Rhythm: Yes Ischemic changes: non-specific ST-T wave changes - ROBERTO CARLOS Score for Non-Stemi Age of Patient: 40-49 years old Heart Rate: 70-89 bpm Systolic Blood Pressure: 120-139 mmhg Serum Creatinine: 0.40-0.79 mg/dl CHF [place] Class: I-No CHF Other Risk Factors: None Non-Stemi Risk Score: 72 Medical Decision Narrative: atypical presentation with lt upper ext an
[2020-10-28 00:30] VITALS: BP 116/66; PULSE 69; RESP 13; O2SAT 96
[2020-10-28 00:57] LABS: Erythrocyte Sedimentation Rate 22 mm/hr (0-20)
[2020-10-28 01:00] VITALS: BP 132/78; PULSE 69; RESP 12; O2SAT 96
--- NOTE | 2020-10-28 01:15 | PC.NURSE ---
MD had went in and assess patient and after discussing symptoms decided against head CT. Order cancelled and 2nd troponin ordered for 12:30
[2020-10-28 01:18] LABS: Troponin I < 0.01 ng/ml (0.00-0.034)
[2020-10-28 01:24] VITALS: BP 132/78; PULSE 70; RESP 16; TEMP 36.8; O2SAT 98
== END 2020-10-28 01:26 | disposition home or self-care (01) ==
PROVIDERS: Emergency Provider Emergency Medicine; PCP Internal Medicine
DX: M79.602 Pain in left arm (principal); I10 Essential (primary) hypertension; E78.5 Hyperlipidemia, unspecified; K21.9 Gastro-esophageal reflux disease without esophagitis; F41.8 Other specified anxiety disorders; Z88.1 Allergy status to other antibiotic agents; Z79.899 Other long term (current) drug therapy
CPT/HCPCS: 71046; 80048; 84145; 84484; 85025; 85651; 86140; 93005; 99283

== ENCOUNTER 2020-12-25 09:49 | Emergency (ER) | payer OTHER, SELFPAY ==
[2020-12-25 09:56] VITALS: PULSE 82; RESP 18; O2SAT 97; BMI 42.1
[2020-12-25 11:05] VITALS: BP 114/75; PULSE 82; RESP 18; TEMP 36.7; O2SAT 97; BMI 42.1
--- NOTE | 2020-12-25 11:26 | HMH.EDUTC ---
[facility] [place] Clinical Impression: Cellulitis Qualifiers: Site of cellulitis: unspecified site Qualified Code(s): L03.90 - Cellulitis, unspecified Disposition: Home, Self-Care Condition on Discharge: Good Instructions: Cellulitis, Cephalexin, Methylprednisolone, Mupirocin Additional Instructions: *Start antibiotic(s) immediately and be sure to take as ordered for the FULL length of time although you may be feeling better or start to see improvement in the next 24-48 hours *Monitor closely. Outlined redness so that you can monitor easier. Follow up immediately for new or worsening symptoms including but not limited to redness, swelling, streaking from site fever or chills. *Warm compress 15 minutes 3-4 times day *Never squeeze or pop these on your own. Seek immediate medical attention next time this occurs *Monitor Temp. Tylenol every 4 hours as needed and ibuprofen every 6 hours as needed (as long as your primary care doctor has told you that it is ok to take both. For fever, aches, pain. ER if no less that 101 despite Tylenol and ibuprofen Follow up with your family doctor/primary care physician in the next 48-72 hours if no improvement Prescriptions: cephALEXin [cephALEXin 500mg capsule*] 500 mg PO Q6H 7 Days #28 cap Transmission Status: Pending to [facility] Mupirocin Calcium [Mupirocin 2% Cream 15gm] 1 applicatio TP TID 10 Days #15 gm Transmission Status: Pending to [facility] Referrals: Herbert Haro [Primary Care Provider] - As needed Time of Disposition: 11:35 Medical Decision Making - Spencer Inquiry Pt receiving controlled substance: No Spencer was queried for this patient: No Vital Signs: 12/25/20 09:56 12/25/20 11:05 Temperature 98.0 F Temperature Source Oral Pulse Rate [Left Radial] 82 82 Respiratory Rate 18 18 Blood Pressure [Left Arm] 114/75 Blood Pressure Mean [Left Arm] 88 Blood Pressure Source [Left Arm] Automatic Cuff Blood Pressure Position [Left Arm] Sitting 02 Sat by Pulse Oximetry 97 97 Oxygen Delivery Method Room Air Room Air [facility] [place] HPI - General Stated complaint: spider bite rt breast Time Seen by Provider: 12/25/20 11:26 Mode of Arrival: Ambulatory Source of Information: Patient Limitations: No Limitations Description of Symptoms (Recalled from Triage Doc. by RN): pt c/o insect bite to her right breast, redness noted to breast HEENT Symptoms (Recalled from RN notes): No Resp Symptoms (Recalled from RN notes): No Skin Symptoms (Recalled from RN notes): Yes MS Symptoms (Recalled from RN notes): No Functional Status (Recalled from RN notes): WNL - History of Present Illness Provider Complaint: Patient states that she was bitten on the right breast by something she thinks may have been a spider State that she has noticed she had redness, warmth and swelling in the area and the redness is starting to spread so she came in to get it checked - Related Data Home Medications Medication Instructions Recorded Confirmed esomeprazole magnesium 20 mg 20 mg PO DAILY cap 06/08/17 11/04/20 capsule,delayed release paroxetine HCl 20 mg tablet 10 mg PO QAM 06/08/17 11/04/20 Empaglifloz/Linaglip/Metformin 1 each PO DAILY 10/27/20 11/04/20 [Trijardy Xr 10-5-1,000 mg Tab] atorvastatin 80 mg tablet 80 mg PO HS 11/04/20 11/04/20 Previous Rx's Medication Instructions Recorded bisoprolol 2.5 1 tab PO DAILY #30 tab 10/16/18 mg-hydrochlorothiazide 6.25 mg tablet Albuterol Sulfate [Albuterol 2 puffs IH Q6HP PRN 30 Days #1 04/23/20 Sulfate Hfa] hfa.[email or web address] Mupirocin Calcium [Mupirocin 2% 1 applicatio TP TID 10 Days #15 gm 12/25/20 Cream 15gm] cephALEXin [cephALEXin 500mg 500 mg PO Q6H 7 Days #28 cap 12/25/20 capsule*] Allergies Allergy/AdvReac Type Severity Reaction Status Date / Time Tetracyclines [TETRACYCLINES] Allergy Unknown Hives Verified 11/04/20 13:23 - Worker's Comp Is this a Worker's Comp case?: No [facility] History - Hepatitis A Scre
[2020-12-25 11:42] VITALS: BP 114/75; PULSE 82; RESP 18; TEMP 36.7; O2SAT 97
== END 2020-12-25 11:47 | disposition home or self-care (01) ==
LOC: ER 09:57 → UTC 09:59
PROVIDERS: Emergency Provider Nurse Practitioner; PCP Internal Medicine
DX: S20.161A Insect bite (nonvenomous) of breast, right breast, initial encounter (principal); W57.XXXA Bitten or stung by nonvenomous insect and other nonvenomous arthropods, initial encounter; F41.8 Other specified anxiety disorders; I10 Essential (primary) hypertension; K21.9 Gastro-esophageal reflux disease without esophagitis; E78.5 Hyperlipidemia, unspecified; E11.9 Type 2 diabetes mellitus without complications; Z87.891 Personal history of nicotine dependence; Z79.899 Other long term (current) drug therapy
CPT/HCPCS: 99202; G0463

== ENCOUNTER → 2021-03-23 11:41 | Outpatient (CLI) | payer OTHER, SELFPAY | PROVIDERS: PCP Internal Medicine; Visit Provider Internal Medicine | DX: U07.1 COVID-19 (principal) | CPT/HCPCS: C9803; U0003; U0005 ==

== ENCOUNTER 2021-03-24 01:54 | Emergency (ER) | payer OTHER, SELFPAY ==
--- NOTE | 2021-03-24 01:47 | ECG_ITS ---
APPROVED REPORT Exam: Resting ECG HR:98 bpm ECG Measurements Heart Rate 98 AXES [place] 172 P 47 QRSd 82 QRS 44 QT 336 T 25 QTc 428 Conclusion Normal sinus rhythm Normal ECG Electronically signed by : Grant Riley MD 03/24/2021 21:50:16
[2021-03-24 01:55] VITALS: BP 144/84; PULSE 101; RESP 20; TEMP 38.4; O2SAT 97; BMI 42.0
--- NOTE | 2021-03-24 02:12 | XR_ITS ---
PROCEDURE INFORMATION: Exam: XR Chest Exam date and time: 03/24/2021 2:12 AM Age: 45 years old Clinical indication: Cough; Additional info: Cough, covid TECHNIQUE: Imaging protocol: XR of the chest. Views: 1 view. COMPARISON: CR XR CHEST 2V 10/27/2020 10:08 PM FINDINGS: Lungs: Mild haziness in the bilateral perihilar regions could reflect atelectasis or atypical infection. No lobar consolidation. Pleural spaces: No pleural effusion. No pneumothorax. Heart/Mediastinum: Normal heart size. Bones/joints: Unremarkable. IMPRESSION: Mild perihilar haziness could reflect atelectasis or atypical infection.
--- NOTE | 2021-03-24 02:17 | HMH.EDGENADL ---
ED Disposition Clinical Impression: Lightheadedness, COVID-19 Disposition: Home, Self-Care Condition on Discharge: Fair Instructions: Dizziness, Nonvertigo, DI for COVID-19 (Suspected or Confirmed ) Additional Instructions: You have been evaluated for lightheadedness, due to COVID-19. Please take Tylenol every 6 hours for pain and fever. Stay hydrated. Eat a balanced diet. Follow-up with Dr. Haro in the next 1 to 2 days. Follow-up for monoclonal antibody infusion. Monitor your pulse ox at home, return for oxygen saturation less than 92% or any symptoms of dyspnea, cough, other concerns. Referrals: Provider,Referral, [Primary Care Provider] - Time of Disposition: 03:53 - Critical Care Critical Care Time: No Attestation: On 03/24/21, the high probability of a clinically significant, sudden or life threatening deterioration of the following system(s) required my full and direct attention, intervention and personal management. The time I documented below is in addition to time spent performing reported procedures but includes the following listed in this critical care notation. Medical Decision Making - Medical Records Medical records reviewed: Yes: I reviewed the patient's medical records. - Spencer Inquiry Pt receiving controlled substance: No Vital Signs: 03/24/21 01:55 Temperature 101.2 F H Temperature Source Oral Pulse Rate [Right] 101 H Respiratory Rate 20 Blood Pressure [Right Arm] 144/84 H Blood Pressure Mean [Right Arm] 104 02 Sat by Pulse Oximetry 97 Oxygen Delivery Method Room Air - Lab Data Lab Results 03/24/21 01:59: WBC 9.9, RBC 4.97, Hgb 14.5, Hct 43.6, MCV 87.7, MCH 29.1, MCHC 33.2, RDW 14.5, Plt Count 331, MPV 8.4, Neut % (Auto) 66.8, Lymph % (Auto) 22.4, [place] % (Auto) 4.8, Eos % (Auto) 4.2, Baso % (Auto) 1.8, Neut # (Auto) 6.6, Lymph # (Auto) 2.2, [place] # (Auto) 0.5, Eos # (Auto) 0.4, Baso # (Auto) 0.2 03/24/21 01:59: Sodium 136, Potassium 3.7, Chloride 99, Carbon Dioxide 27, Anion Gap 13.7, BUN 13, Creatinine 0.60, Estimated Creat Clear 94, Estimated GFR 108, Est GFR ( Amer) 131, Glucose 175 H, Calcium 9.2, Total Bilirubin 0.3, AST 39 H, ALT 39, Alkaline Phosphatase 113, Total Protein 7.4, Albumin 4.3, Globulin 3.1, Albumin/Globulin Ratio 1.4 Result diagrams: 03/24/21 01:59 03/24/21 01:59 Orders (Tests/Meds): ED MEDICATIONS Discontinued Medications Generic Name Dose Route Start Last Admin Trade Name Abigail PRN Reason Stop Dose Admin Acetaminophen 650 mg 03/24/21 02:21 03/24/21 02:25 Acetaminophen 325mg Tab PO 03/24/21 02:22 650 mg ONCE ONE Administration Meclizine HCl 25 mg 03/24/21 02:12 03/24/21 02:25 Meclizine 25mg Tablet PO 03/24/21 02:13 25 mg ONCE ONE Administration ORDERS Category Date Time Status UA [Urinalysis and Microscopic] Stat Lab 03/24/21 02:13 Ordered - ECG Data Tracing #1 Sinus rhythm with ventricular rate of 85 bpm. QRS 76, QTc 421. No ST segment changes. No arrhythmia. Medical Decision Narrative: In summary this is a 45-year-old female presenting to the emergency department with lightheadedness, dizziness. Patient clinically stable on arrival. She is febrile to 101 Fahrenheit. Also tachycardic to 101. Oxygen saturation is 95% on room air. She is in respiratory distress. Overall presentation is most concerning for COVID-19. Given her history of diabetes, concern for hyperglycemia, hypoglycemia, renal insufficiency. Will obtain CBC, CMP, chest x-ray. Patient given 650 mg p.o. Tylenol Initial laboratory results are reassuring. No leukocytosis. No renal insufficiency. Glucose elevated at 175. Chest x-ray does not show multifocal or focal opacity. Patient had one episode of urinary incontinence while in the emergency department. Said she was too weak to get up to go to the bathroom. Now tearful and upset. I help nursing staff change her clothes and the bed. Urinalysis shows no signs o
[2021-03-24 02:19] LABS: Basophils # 0.2 K/mm3 (0-0.2); Basophils % 1.8 % (0.1-2.0); Eosinophils # 0.4 K/mm3 (0.0-0.4); Eosinophils % 4.2 % (0.1-12.0); Hematocrit 43.6 % (37.0-47.0); Hemoglobin 14.5 g/dL (12.2-16.2); Lymphocytes # 2.2 K/mm3 (0.7-4.5); Lymphocytes % 22.4 % (10-50); Mean Corpuscular HGB Conc 33.2 g/dL (31.8-35.4); Mean Corpuscular Hemoglobin 29.1 pg (27.0-31.2); Mean Corpuscular Volume 87.7 fl (81-99); Mean Platelet Volume 8.4 fl (7.4-10.4); Monocytes # 0.5 K/mm3 (0.1-1.0); Monocytes % 4.8 % (1.7-9.3); Neutrophils # 6.6 K/mm3 (1.8-7.8); Neutrophils % 66.8 % (37.0-80.0); Platelet Count 331 K/mm3 (142-424); Red Blood Count 4.97 M/mm3 (4.20-5.40); Red Cell Distribution Width 14.5 % (11.5-17.5); White Blood Count 9.9 K/mm3 (4.8-10.8)
[2021-03-24 03:28] LABS: Alanine Aminotransferase 39 U/L (12-78); Albumin Level 4.3 g/dl (3.5-5.0); Albumin/Globulin Ratio 1.4 (1.1-1.8); Alkaline Phosphatase 113 U/L (38-126); Anion Gap 13.7 mEq/L (5-15); Aspartate Amino Transferase 39 U/L (14-36); Bilirubin,Total 0.3 mg/dl (0.2-1.3); Blood Urea Nitrogen 13 mg/dl (7-17); Calcium 9.2 mg/dl (8.4-10.2); Carbon Dioxide 27 mmol/L (22.0-30.0); Chloride 99 mmol/L (98-107); Creatinine Clearance Estimated 94 mL/min (50-200); Estimated Glomerular Filt Rate 108 ml/min (>60); GFR (African American) 131 ML/MIN (>60); Globulin 3.1 g/dL (1.3-3.2); Glucose 175 mg/dl (74-100); Potassium 3.7 mmoL/L (3.5-5.1); Sodium 136 mmol/L (136-145); Total Protein,Serum 7.4 g/dl (6.3-8.2)
[2021-03-24 04:04] LABS: Microscopic, Urine URINE MICROSCOPIC (MICROSCOPIC)
[2021-03-24 04:05] LABS: Appearance,Urine CLEAR (Clear); Bilirubin,Urine Negative (Negative); Blood, Urine Negative (Negative); Color,Urine YELLOW (Yellow); Glucose,Urine (UA) 2+ (Negative); Ketones,Urine Negative (Negative); Leukocyte Esterase,Urine Negative (Negative); Nitrate,Urine Negative (Negative); PH,Urine 5.5 (5.0-8.5); Protein,Urine Negative (Negative); Specific Gravity, Urine 1.025 (1.005-1.030); Urobilinogen,Urine 0.2 EU/dl (0.2)
[2021-03-24 04:19] VITALS: BP 145/77; PULSE 93; RESP 20; TEMP 37.7; O2SAT 96
[2021-03-24 04:20] LABS: Bacteria,Urine Trace /lpf; Squamous Epithelial Cell,Urine Occasional #/hpf (0-5); WBC,Urine Occasional #/hpf (0-3)
== END 2021-03-24 04:42 | disposition home or self-care (01) ==
PROVIDERS: Emergency Provider Emergency Medicine
DX: U07.1 COVID-19 (principal); R42 Dizziness and giddiness; I10 Essential (primary) hypertension; E78.5 Hyperlipidemia, unspecified; K21.9 Gastro-esophageal reflux disease without esophagitis; F41.8 Other specified anxiety disorders; Z79.899 Other long term (current) drug therapy
CPT/HCPCS: 71045; 80053; 81001; 85025; 93005; 99283

== ENCOUNTER → 2021-03-26 07:55 | Outpatient (CLI) | payer OTHER, SELFPAY ==
[2021-03-26] VITALS (13 sets, daily range): BP systolic 130–173; BP diastolic 60–86; PULSE 71–88; O2SAT 96–98
== END ==
PROVIDERS: PCP Internal Medicine; Visit Provider Internal Medicine
DX: U07.1 COVID-19 (principal); Z23 Encounter for immunization
CPT/HCPCS: 96365

== ENCOUNTER → 2021-07-06 11:24 | Outpatient (CLI) | payer OTHER, SELFPAY ==
--- NOTE | 2021-07-06 11:29 | XR_ITS ---
PROCEDURE INFORMATION: Exam: XR Chest Exam date and time: 07/06/2021 11:39 AM Age: 46 years old Clinical indication: Cough; Additional info: Aspirationepisode, gerd TECHNIQUE: Imaging protocol: XR of the chest. Views: 2 views. COMPARISON: CR XR CHEST PORTABLE 03/24/2021 2:26 AM FINDINGS: Lungs: Normal. Pleural spaces: Unremarkable. No pleural effusion. No pneumothorax. Heart/Mediastinum: Normal. Bones/joints: No acute abnormality. IMPRESSION: No acute findings.
== END ==
PROVIDERS: PCP Internal Medicine; Visit Provider Internal Medicine
DX: R05.9 Cough, unspecified (principal); K21.9 Gastro-esophageal reflux disease without esophagitis
CPT/HCPCS: 71046

== ENCOUNTER → 2021-07-07 10:23 | Outpatient (CLI) | payer OTHER, SELFPAY ==
--- NOTE | 2021-07-07 10:26 | XR_ITS ---
FINAL REPORT TECHNIQUE: Chest PA & Lateral CLINICAL HISTORY: FEVER,ASPIRATION EPISODE COMPARISON: July 06, 2021 FINDINGS: 2 views of the chest were performed. The heart size is normal. The mediastinum is within normal limits. There is scarring or atelectasis in the left lung base. There are no pleural effusions. There is no pneumothorax. The bony thorax appears intact. IMPRESSION: Scarring or atelectasis in the left lung base. Reviewed, Interpreted and Dictated by Shahab Sevilla MD Transcribed by Geneva Snow Authenticated by Shahab Sevilla MD on 07/07/2021 01:53:48 PM [facility]
== END ==
PROVIDERS: PCP Internal Medicine; Visit Provider Internal Medicine
DX: R50.9 Fever, unspecified (principal); R07.89 Other chest pain
CPT/HCPCS: 71046

== ENCOUNTER 2021-08-30 03:16 | Emergency (ER) | payer OTHER, SELFPAY ==
[2021-08-30 03:17] VITALS: BP 121/89; PULSE 87; RESP 16; TEMP 37.1; O2SAT 99; BMI 41.1
[2021-08-30 03:39] LABS: Microscopic, Urine URINE MICROSCOPIC (MICROSCOPIC)
[2021-08-30 03:40] LABS: Appearance,Urine CLEAR (Clear); Bilirubin,Urine Negative (Negative); Blood, Urine Negative (Negative); Color,Urine YELLOW (Yellow); Glucose,Urine (UA) 3+ (Negative); Ketones,Urine Negative (Negative); Leukocyte Esterase,Urine Negative (Negative); Nitrate,Urine Negative (Negative); Protein,Urine Negative (Negative); Specific Gravity, Urine >= 1.030 (1.005-1.030); Urobilinogen,Urine 0.2 EU/dl (0.2)
[2021-08-30 03:42] LABS: Urine Pregnancy, HCG Qual. Negative (Negative)
[2021-08-30 03:44] LABS: WBC,Urine Occasional #/hpf (0-3)
[2021-08-30 03:46] LABS: POC Glucose,Bedside 131 (70-110)
--- NOTE | 2021-08-30 04:31 | HMH.EDGENADL ---
ED Disposition Clinical Impression: Gastroenteritis Disposition: Home, Self-Care Condition on Discharge: Good Instructions: Viral Gastroenteritis Additional Instructions: Please follow-up with your primary care physician in 2 to 3 days for further management. Please utilize the Zofran as prescribed to help with nausea and vomiting. Please drink plenty of water and eat 3 balanced meals. Please return for any concerning symptoms such as inability to eat and drink, abdominal pain, inability to have a bowel movement or any other concerns. Prescriptions: Ondansetron [Zofran 4mg ODT] 4 mg PO TIDP PRN #20 tab PRN Reason: Nausea Transmission Status: Received by [id number] Referrals: Herbert Haro MD [Primary Care Provider] - - Critical Care Critical Care Time: No Attestation: On 08/30/21, the high probability of a clinically significant, sudden or life threatening deterioration of the following system(s) required my full and direct attention, intervention and personal management. The time I documented below is in addition to time spent performing reported procedures but includes the following listed in this critical care notation. Medical Decision Making - Medical Records Medical records reviewed: Yes: I reviewed the patient's medical records. - [place] Inquiry Pt receiving controlled substance: No Vital Signs: 08/30/21 03:17 08/30/21 04:41 Temperature 98.8 F 98.8 F Temperature Source Oral Pulse Rate 81 Pulse Rate [Left Radial] 87 Respiratory Rate 16 16 Blood Pressure 119/78 Blood Pressure [Right Arm] 121/89 Blood Pressure Mean [Right Arm] 99 Blood Pressure Source [Right Arm] Automatic Cuff Blood Pressure Position [Right Arm] Sitting 02 Sat by Pulse Oximetry 99 Oxygen Delivery Method Room Air - Lab Data Lab results reviewed: Yes: I reviewed the patient's lab results. Lab Results 08/30/21 03:30: Urine Color Yellow, Urine Appearance Clear, Urine pH 5.0, Ur Specific [place] >= 1.030, Urine Protein Negative, Urine Glucose (UA) 3+, Urine Ketones Negative, Urine Blood Negative, Urine Nitrate Negative, Urine Bilirubin Negative, Urine Urobilinogen 0.2, Ur Leukocyte Esterase Negative, Urine WBC Occasional, Ur Squamous Epith Cells 5-10 08/30/21 03:30: Urine HCG, Qual Negative 08/30/21 03:39: POC Glucose 131 H Orders (Tests/Meds): ED MEDICATIONS Discontinued Medications Generic Name Dose Route Start Last Admin Trade Name Abigail PRN Reason Stop Dose Admin Ondansetron HCl 4 mg 08/30/21 03:38 08/30/21 03:39 Ondansetron 4mg Odt SL 08/30/21 03:39 4 mg ONCE ONE Administration Medical Decision Narrative: Mrs. Yi is a 46-year-old female with past medical history for diabetes mellitus and gastroparesis presenting to the emergency department for 1 day of nonbloody diarrhea and nausea. Patient is afebrile and hemodynamically stable on arrival bedside glucose 131. On physical exam patient has a nontender abdomen and denies any abdominal pain at this time. Patient has no clinical signs of dehydration cap refill less than 2, good skin turgor and moist mucous membranes. Symptoms are consistent with viral gastroenteritis/food poisoning no further workup needed. Patient is given ODT and p.o. challenge successfully. Patient is discharged with Zofran for outpatient management and instructed to follow-up with PCP in 2 to 3 days. Patient instructed to return if unable to tolerate p.o., abdominal pain, bloody stools or any other concerns. General Adult HPI - General Chief complaint: Abdominal Pain Stated complaint: diarrhea, hbp, vomiting Time Seen by Provider: 08/30/21 03:25 Mode of Arrival: Wheelchair Source of Information: Patient Limitations: No Limitations Description of Symptoms (Recalled from ER Triage Doc. by RN): N/V/D- X 1 DAY - History of Present Illness HPI narrative: Miss Salas is a 46-year-old female with past medical history for diabetes mellitus and gastropa
[2021-08-30 04:41] VITALS: BP 119/78; PULSE 81; RESP 16; TEMP 37.1; O2SAT 99
== END 2021-08-30 04:44 | disposition home or self-care (01) ==
PROVIDERS: Emergency Provider Student in an Organized Health Care Education/Training Program; PCP Internal Medicine
DX: K52.9 Noninfective gastroenteritis and colitis, unspecified (principal); E11.9 Type 2 diabetes mellitus without complications; Z87.19 Personal history of other diseases of the digestive system; Z88.1 Allergy status to other antibiotic agents; F41.9 Anxiety disorder, unspecified; F32.A Depression, unspecified; K21.9 Gastro-esophageal reflux disease without esophagitis; E78.5 Hyperlipidemia, unspecified; I10 Essential (primary) hypertension; Z82.3 Family history of stroke; Z83.3 Family history of diabetes mellitus; Z82.49 Family history of ischemic heart disease and other diseases of the circulatory system; Z80.9 Family history of malignant neoplasm, unspecified
CPT/HCPCS: 81001; 81025; 82962; 99282

== ENCOUNTER 2021-09-06 20:05 | Emergency (ER) | payer OTHER, SELFPAY ==
[2021-09-06 20:21] VITALS: BP 143/79; PULSE 83; RESP 19; TEMP 37; O2SAT 98; BMI 42.0
--- NOTE | 2021-09-06 20:51 | HMH.EDUTC ---
[facility] [place] Clinical Impression: Cellulitis of left upper arm Disposition: Home, Self-Care Condition on Discharge: Good Instructions: Cellulitis Additional Instructions: Keep the affected area clean and dry. Follow up with your regular doctor. Take the antibiotics as directed and apply the topical antibiotics as directed. Apply warm wet compresses to the affected area three or four times per day. GO TO THE ER FOR ANY WORSENING SYMPTOMS Watch for signs of worsening infection, such as the red area getting larger, swelling, more drainage, fever, chills or just feeling bad all over. Go to the ER or to your primary care physician for any concerns. Prescriptions: Ondansetron [Zofran 4mg ODT] 4 mg PO Q8HP PRN #20 tab PRN Reason: Nausea Transmission Status: Received by [id number] Sulfamethoxazole/Trimethoprim [Bactrim DS tablet] 1 each PO BID 10 Days #20 tab Transmission Status: Received by [id number] cephALEXin [cephALEXin 500mg capsule] 500 mg PO Q6H 10 Days #40 cap Transmission Status: Received by [id number] Fluconazole [Diflucan 150mg tab] 150 mg PO ONCE #1 tab Transmission Status: Received by [id number] Referrals: Herbert Haro MD [Primary Care Provider] - Time of Disposition: 20:54 Medical Decision Making - Medical Records Medical records reviewed: No: I reviewed the patient's medical records. - [place] Inquiry Pt receiving controlled substance: No Vital Signs: 09/06/21 20:21 Temperature 98.6 F Temperature Source Oral Pulse Rate [Left Radial] 83 Respiratory Rate 19 Blood Pressure [Right Arm] 143/79 H Blood Pressure Mean [Right Arm] 100 02 Sat by Pulse Oximetry 98 Orders (Tests/Meds): ED MEDICATIONS Discontinued Medications Generic Name Dose Route Start Last Admin Trade Name Freq PRN Reason Stop Dose Admin Ceftriaxone Sodium 1 gm 09/06/21 20:35 09/06/21 20:46 Ceftriaxone 1gm Vial IM 09/06/21 20:36 1 gm ONCE ONE Administration Lidocaine HCl 0 ml 09/06/21 20:35 09/06/21 20:47 Lidocaine 1% 5ml Pf Vial IM 09/06/21 20:36 2 ml ONCE ONE Administration [facility] [place] - General Stated complaint: Possible insect bite L Arm Time Seen by Provider: 09/06/21 20:30 Mode of Arrival: Ambulatory Source of Information: Patient Limitations: No Limitations Description of Symptoms (Recalled from Triage Doc. by RN): pt got bit by some type of bug, pt is unsure. left arm by elbow, large red swollen spot HEENT Symptoms (Recalled from RN notes): No Resp Symptoms (Recalled from RN notes): No Skin Symptoms (Recalled from RN notes): Yes MS Symptoms (Recalled from RN notes): No Functional Status (Recalled from RN notes): wnl - History of Present Illness Provider Complaint: She states that since last night she has had a red area on the back of her left upper arm. There is a small wound in its center. She came in tonight because the red area has got significantly larger through out today. She is a diabetic. She denies any fever or chills, but she has felt kind of bad today. She has not idea if something bit her or what caused this place on her arm - Related Data Home Medications Medication Instructions Recorded Confirmed esomeprazole magnesium 20 mg 20 mg PO DAILY cap 06/08/17 11/04/20 capsule,delayed release paroxetine HCl 20 mg tablet 10 mg PO QAM 06/08/17 11/04/20 Empaglifloz/Linaglip/Metformin 1 each PO DAILY 10/27/20 11/04/20 [Trijardy Xr 10-5-1,000 mg Tab] atorvastatin 80 mg tablet 80 mg PO HS 11/04/20 11/04/20 Previous Rx's Medication Instructions Recorded bisoprolol 2.5 1 tab PO DAILY #30 tab 10/16/18 mg-hydrochlorothiazide 6.25 mg tablet Albuterol Sulfate [Albuterol 2 puffs IH Q6HP PRN 30 Days #1 04/23/20 Sulfate Hfa] hfa.aer.ad Mupirocin Calcium [Mupirocin 2% 1 applicatio TP TID 10 Days #15 gm 12/25/20 Cream 15gm] cephALEXin [cephALEXin 500mg 500 mg PO Q6H 7 Days #28 cap 12/25/20 ca
[2021-09-06 20:55] VITALS: BP 143/79; PULSE 83; RESP 19; TEMP 37
== END 2021-09-06 21:00 | disposition home or self-care (01) ==
PROVIDERS: Emergency Provider Nurse Practitioner Family; PCP Internal Medicine
DX: L03.114 Cellulitis of left upper limb (principal); E11.9 Type 2 diabetes mellitus without complications; F41.9 Anxiety disorder, unspecified; F32.A Depression, unspecified; K21.9 Gastro-esophageal reflux disease without esophagitis; E78.5 Hyperlipidemia, unspecified; I10 Essential (primary) hypertension; R56.9 Unspecified convulsions
CPT/HCPCS: 87070; 87077; 87186; 87205; 96372; 99283; J0696

== ENCOUNTER → 2021-09-25 17:03 | Outpatient (CLI) | payer OTHER, SELFPAY ==
[2021-09-25 18:05] LABS: Basophils # 0.2 K/mm3 (0-0.2); Basophils % 2.1 % (0.1-2.0); Eosinophils # 0.3 K/mm3 (0.0-0.4); Eosinophils % 2.8 % (0.1-12.0); Hematocrit 45.7 % (37.0-47.0); Hemoglobin 14.9 g/dL (12.2-16.2); Lymphocytes # 2.9 K/mm3 (0.7-4.5); Lymphocytes % 31.6 % (10-50); Mean Corpuscular HGB Conc 32.7 g/dL (31.8-35.4); Mean Corpuscular Hemoglobin 29.5 pg (27.0-31.2); Mean Corpuscular Volume 90.3 fl (81-99); Mean Platelet Volume 8.9 fl (7.4-10.4); Monocytes # 0.3 K/mm3 (0.1-1.0); Monocytes % 3.4 % (1.7-9.3); Neutrophils # 5.6 K/mm3 (1.8-7.8); Neutrophils % 60.1 % (37.0-80.0); Platelet Count 417 K/mm3 (142-424); Red Blood Count 5.06 M/mm3 (4.20-5.40); Red Cell Distribution Width 15.3 % (11.5-17.5); White Blood Count 9.3 K/mm3 (4.8-10.8)
[2021-09-25 18:27] LABS: Alanine Aminotransferase 42 U/L (12-78); Albumin Level 4.4 g/dl (3.5-5.0); Albumin/Globulin Ratio 1.4 (1.1-1.8); Alkaline Phosphatase 128 U/L (38-126); Anion Gap 15.4 mEq/L (5-15); Aspartate Amino Transferase 47 U/L (14-36); Bilirubin,Total 0.4 mg/dl (0.2-1.3); Blood Urea Nitrogen 14 mg/dl (7-17); Calcium 10.1 mg/dl (8.4-10.2); Carbon Dioxide 30 mmol/L (22.0-30.0); Chloride 97 mmol/L (98-107); Chol/HDL Ratio 4.3 (1-3.5); Cholesterol 136 mg/dl (140-200); Estimated Glomerular Filt Rate 108 ml/min (>60); GFR (African American) 130 ML/MIN (>60); Globulin 3.1 g/dL (1.3-3.2); Glucose 118 mg/dl (74-100); HDL Cholesterol 32 mg/dl (40-60); Potassium 4.4 mmoL/L (3.5-5.1); Sodium 138 mmol/L (136-145); Total Protein,Serum 7.5 g/dl (6.3-8.2); Triglycerides 263 mg/dl (30-150); VLDL Cholesterol 53 mg/dL (0-40)
[2021-09-25 18:38] LABS: Direct LDL Cholesterol 65.54 mg/dL (100-129)
[2021-09-25 18:58] LABS: Thyroid Stimulating Hormone 1.62 uIU/mL (0.465-4.68)
== END ==
PROVIDERS: PCP Internal Medicine; Visit Provider Internal Medicine
DX: E11.9 Type 2 diabetes mellitus without complications (principal); I10 Essential (primary) hypertension; E78.5 Hyperlipidemia, unspecified; Z79.84 Long term (current) use of oral hypoglycemic drugs
CPT/HCPCS: 80053; 80061; 83036; 84443; 85025

== ENCOUNTER → 2022-02-19 11:35 | Outpatient (CLI) | payer OTHER, SELFPAY ==
--- NOTE | 2022-02-19 11:47 | XR_ITS ---
FINAL REPORT CLINICAL HISTORY: ANKLE PAIN AND SWELLING FINDINGS: Left ankle Three views were obtained. There is no acute fracture or dislocation. The joint spaces appear normal. There is lateral soft tissue swelling. IMPRESSION: No acute process. Reviewed, Interpreted and Dictated by Momo Sosa III, MD Transcribed by Cee Shen Authenticated and [facility]
== END ==
PROVIDERS: PCP Internal Medicine; Visit Provider Internal Medicine
DX: M25.572 Pain in left ankle and joints of left foot (principal); M25.472 Effusion, left ankle
CPT/HCPCS: 73610

== ENCOUNTER → 2022-08-02 12:30 | Outpatient (CLI) | payer OTHER, SELFPAY ==
[2022-08-02 13:11] LABS: Creatinine,Urine Random 91 mg/dL (Not Estab.)
[2022-08-02 13:12] LABS: Microalbumin < 6.000 mg/L (0-16.7)
[2022-08-02 13:28] LABS: Hemoglobin A1C 6.8 % (4.0-6.0)
[2022-08-02 13:30] LABS: Alanine Aminotransferase 30 U/L (12-78); Albumin/Globulin Ratio 1.6 (1.1-1.8); Alkaline Phosphatase 91 U/L (38-126); Anion Gap 10.1 mEq/L (5-15); Aspartate Amino Transferase 32 U/L (14-36); Bilirubin,Total 0.4 mg/dl (0.2-1.3); Blood Urea Nitrogen 17 mg/dl (7-17); Calcium 8.7 mg/dl (8.4-10.2); Carbon Dioxide 30 mmol/L (22.0-30.0); Chloride 100 mmol/L (98-107); Chol/HDL Ratio 3.9 (1-3.5); Cholesterol 116 mg/dl (140-200); Estimated Glomerular Filt Rate 132 ml/min (>60); GFR (African American) 160 ML/MIN (>60); Globulin 2.5 g/dL (1.3-3.2); Glucose 107 mg/dl (74-100); HDL Cholesterol 30 mg/dl (40-60); Potassium 4.1 mmoL/L (3.5-5.1); Sodium 136 mmol/L (136-145); Total Protein,Serum 6.5 g/dl (6.3-8.2); Triglycerides 235 mg/dl (30-150); VLDL Cholesterol 47 mg/dL (0-40)
== END ==
PROVIDERS: PCP Internal Medicine; Visit Provider Internal Medicine
DX: E11.42 Type 2 diabetes mellitus with diabetic polyneuropathy (principal); E78.5 Hyperlipidemia, unspecified; I10 Essential (primary) hypertension; E66.01 Morbid (severe) obesity due to excess calories; Z68.41 Body mass index [BMI] 40.0-44.9, adult
CPT/HCPCS: 80053; 80061; 82043; 82570; 83036

== ENCOUNTER 2022-10-08 21:57 | Emergency (ER) | payer OTHER, SELFPAY ==
[2022-10-08 21:57] VITALS: BP 137/66; PULSE 81; RESP 16; TEMP 36.8; O2SAT 96; BMI 43.0
--- NOTE | 2022-10-08 22:08 | PC.NURSE ---
STREP SENT TO LAB
--- NOTE | 2022-10-08 22:24 | PC.NURSE ---
COVID SWAB SENT TO LAB
[2022-10-08 22:27] LABS: Coronavirus 19, PCR Not Detected (NotDetected); Influenza A, PCR Not Detected (NotDetected); Influenza B, PCR Not Detected (NotDetected)
[2022-10-08 22:28] LABS: Strep Scrn Group A (Rapid) Negative (Negative)
[2022-10-08 22:31] VITALS: BP 114/60; PULSE 76; O2SAT 95
--- NOTE | 2022-10-08 22:57 | HMH.EDEAR ---
Discharge Plan Disposition Patient Disposition: Home, Self-Care Prescriptions Prescriptions: New azithromycin [azithromycin] 250 mg tablet 250 mg PO DIRECTED Qty: 6 0RF Rx Instructions: Take two (2) tablets on day #1, then one (1) tablet day #2 thru #5 No Action omeprazole 40 mg capsule,delayed release(DR/EC) 40 mg PO NEEDED PRN (Reason: Heartburn) tizanidine 4 mg tablet 4 mg PO NEEDED PRN (Reason: Muscle Spasm) multivitamin Tablet 1 tab PO DAILY metformin 500 mg tablet 1,000 mg PO BID paroxetine HCl 20 mg tablet 10 mg PO QAM atorvastatin 80 mg tablet 80 mg PO HS albuterol sulfate 8.5 GM HFA aerosol inhaler 2 puffs IH Q6HP PRN (Reason: Shortness Of Breath) 30 Days Qty: 1 5RF albuterol sulfate [Ventolin HFA] 90 mcg/actuation HFA aerosol inhaler 90 mcg INHALATION NEEDED PRN (Reason: Asthma) bisoprolol fumarate 5 mg tablet See Rx Instructions .ROUTE .COMPLEX Rx Instructions: Take 1 tablet by mouth once daily hydrochlorothiazide 12.5 mg tablet See Rx Instructions .ROUTE .COMPLEX Rx Instructions: Take 1 tablet by mouth once daily glipizide 5 mg tablet 5 mg PO BID Label Comments: TAKE ONE TABLET BY MOUTH TWICE DAILY Farxiga 10 mg tablet 10 mg PO AM aspirin [Aspirin Child] 81 mg Tablet,Chewable 81 mg PO AM ondansetron 4 MG tablet,disintegrating 4 mg PO Q8HP PRN (Reason: Nausea) Qty: 20 0RF Referrals Follow up/Referrals: Herbert Haro MD [Primary Care Provider] - See instructions Clinical Impressions Clinical Impression: Pharyngitis Instructions Patient Instructions: DI for Pharyngitis/Tonsillopharyngitis -- Adult Discharge ED Provider: Kelsie (ED)[facility] HPI General Chief complaint: Ear Stated complaint: sore throat, dizzy Time Seen by Provider: 10/08/22 22:20 Mode of Arrival: Ambulatory Source of Information: Patient and Medical Record Limitations: No Limitations Description of Symptoms (Recalled from ER Triage Doc. by RN): Pt complains of left sided throat and ear pain with dizziness. States she has been on 7 day course of amoxicillin and her PCP told her he thought it was a viral infection since antibiotic isnt working. History of Present Illness HPI Narrative: sore throat and lt ear pain over the last 2 weeks - has used amox Complaint: ear pain Location: left ear Duration: intermittent Severity: moderate Discharge from ear: no Related Data Home Medications Medication Instructions Recorded Confirmed paroxetine HCl 20 mg tablet 10 mg PO QAM Depression 06/08/17 10/08/22 atorvastatin 80 mg tablet 80 mg PO HS High cholesterol 11/04/20 10/08/22 omeprazole 40 mg capsule,delayed 40 mg PO NEEDED PRN Heartburn 10/21/21 10/08/22 release tizanidine 4 mg tablet 4 mg PO NEEDED PRN Muscle Spasm 10/21/21 10/08/22 metformin 500 mg tablet 1,000 mg PO BID Diabetes 12/14/21 10/08/22 multivitamin 1 tab PO DAILY Diet supplement 12/14/21 10/08/22 albuterol sulfate 90 mcg/actuation 90 mcg inhalation NEEDED PRN 10/08/22 10/08/22 aerosol inhaler (Ventolin HFA) Asthma aspirin 81 mg chewable tablet 81 mg PO AM Blood thinner 10/08/22 10/08/22 bisoprolol fumarate 5 mg tablet See Rx Instructions .Route 10/08/22 10/08/22 .COMPLEX Hypertension dapagliflozin propanediol 10 mg 10 mg PO AM Diabetes 10/08/22 10/08/22 tablet (Farxiga) glipizide 5 mg tablet 5 mg PO BID Diabetes 10/08/22 10/08/22 hydrochlorothiazide 12.5 mg tablet See Rx Instructions .Route 10/08/22 10/08/22 .COMPLEX High blood pressure Previous Rx's Medication Instructions Recorded albuterol sulfate 90 mcg/actuation 2 puffs inhalation Q6HP PRN 04/23/20 aerosol inhaler Shortness Of Breath 30 days ##1 ondansetron 4 mg disintegrating 4 mg PO Q8HP PRN Nausea #20 tabs 09/06/21 tablet azithromycin 250 mg tablet 250 mg PO DIRECTED #6 tabs 10/08/22 Allergies Allergy/AdvReac Type Severity [place]
[2022-10-08 23:14] LABS: Basophils # 0.1 K/mm3 (0-0.2); Basophils % 0.5 % (0.1-2.0); Chloride 96 mmol/L (98-107); Eosinophils # 0.3 K/mm3 (0.0-0.4); Eosinophils % 2.6 % (0.1-12.0); Hematocrit 43.7 % (37.0-47.0); Lymphocytes # 4.7 K/mm3 (0.7-4.5); Lymphocytes % 35.2 % (10-50); Mean Corpuscular HGB Conc 32.1 g/dL (31.8-35.4); Mean Corpuscular Hemoglobin 27.6 pg (27.0-31.2); Mean Platelet Volume 7.9 fl (7.4-10.4); Monocytes # 0.4 K/mm3 (0.1-1.0); Monocytes % 3.2 % (1.7-9.3); Neutrophils # 7.8 K/mm3 (1.8-7.8); Neutrophils % 58.6 % (37.0-80.0); Platelet Count 349 K/mm3 (142-424); Potassium 4.2 mmoL/L (3.5-5.1); Red Blood Count 5.08 M/mm3 (4.20-5.40); Red Cell Distribution Width 14.7 % (11.5-17.5); Sodium 139 mmol/L (136-145); White Blood Count 13.3 K/mm3 (4.8-10.8)
[2022-10-08 23:16] LABS: Alanine Aminotransferase 48 U/L (12-78); Alkaline Phosphatase 145 U/L (38-126); Aspartate Amino Transferase 47 U/L (14-36); Bilirubin,Total 0.3 mg/dl (0.2-1.3); Blood Urea Nitrogen 18 mg/dl (7-17); Creatinine Clearance Estimated 92 mL/min (50-200); Estimated Glomerular Filt Rate 107 ml/min (>60); GFR (African American) 130 ML/MIN (>60)
[2022-10-08 23:17] LABS: Albumin Level 4.4 g/dl (3.5-5.0); Albumin/Globulin Ratio 1.3 (1.1-1.8); Anion Gap 16.2 mEq/L (5-15); Calcium 9.3 mg/dl (8.4-10.2); Carbon Dioxide 31 mmol/L (22.0-30.0); Globulin 3.4 g/dL (1.3-3.2); Glucose 164 mg/dl (74-100); Total Protein,Serum 7.8 g/dl (6.3-8.2)
[2022-10-08 23:31] VITALS: BP 118/68
[2022-10-08 23:58] LABS: Monoscreen (Rapid) Negative (Negative)
[2022-10-09 00:04] VITALS: BP 126/63; PULSE 76; RESP 16; TEMP 36.8; O2SAT 95
[2022-10-09 00:06] VITALS: BP 126/63; PULSE 75; RESP 18; TEMP 36.9; O2SAT 98
== END 2022-10-09 00:05 | disposition home or self-care (01) ==
PROVIDERS: Emergency Provider Emergency Medicine; PCP Internal Medicine
DX: J02.9 Acute pharyngitis, unspecified (principal); H92.02 Otalgia, left ear; R42 Dizziness and giddiness; E11.65 Type 2 diabetes mellitus with hyperglycemia; Z79.84 Long term (current) use of oral hypoglycemic drugs
CPT/HCPCS: 80053; 85025; 86318; 87430; 87636; 96374; 96375; 99284; C9803; J0696; U0003; U0005

== ENCOUNTER 2022-11-22 11:14 | Emergency (ER) | payer OTHER, SELFPAY ==
--- NOTE | 2022-11-22 11:17 | HMH.EDGENADL ---
Discharge Plan Disposition Patient Disposition: Home, Self-Care Prescriptions Prescriptions: New amoxicillin 875 mg tablet 875 mg PO BID 10 Days Qty: 20 0RF No Action omeprazole 40 mg capsule,delayed release(DR/EC) 40 mg PO NEEDED PRN (Reason: Heartburn) tizanidine 4 mg tablet 4 mg PO NEEDED PRN (Reason: Muscle Spasm) multivitamin Tablet 1 tab PO DAILY metformin 500 mg tablet 1,000 mg PO BID paroxetine HCl 20 mg tablet 10 mg PO QAM atorvastatin 80 mg tablet 80 mg PO HS albuterol sulfate 8.5 GM HFA aerosol inhaler 2 puffs IH Q6HP PRN (Reason: Shortness Of Breath) 30 Days Qty: 1 5RF albuterol sulfate [Ventolin HFA] 90 mcg/actuation HFA aerosol inhaler 90 mcg INHALATION NEEDED PRN (Reason: Asthma) bisoprolol fumarate 5 mg tablet See Rx Instructions .ROUTE .COMPLEX Rx Instructions: Take 1 tablet by mouth once daily hydrochlorothiazide 12.5 mg tablet See Rx Instructions .ROUTE .COMPLEX Rx Instructions: Take 1 tablet by mouth once daily glipizide 5 mg tablet 5 mg PO BID Patient Comments: TAKE ONE TABLET BY MOUTH TWICE DAILY Farxiga 10 mg tablet 10 mg PO AM aspirin [Aspirin Child] 81 mg Tablet,Chewable 81 mg PO AM azithromycin [azithromycin] 250 mg tablet 250 mg PO DIRECTED Qty: 6 0RF Rx Instructions: Take two (2) tablets on day #1, then one (1) tablet day #2 thru #5 ondansetron 4 MG tablet,disintegrating 4 mg PO Q8HP PRN (Reason: Nausea) Qty: 20 0RF Referrals Follow up/Referrals: Herbert Haro MD [Primary Care Provider] - See instructions Activity Restrictions/Add. Instructions Additional Instructions/Restrictions: Take amoxicillin twice daily for 10 days. Take daily Zyrtec or Claritin as well to help drainage. Call your family doctor to establish care for this visit to the emergency department and schedule follow-up within 48 hours to ensure improvement. If you have any worsening of your condition or any other concerning signs or symptoms, return to the emergency department or your primary care doctor for further evaluation. Clinical Impressions Clinical Impression: Syncope and collapse, Dizziness, Acute left otitis media Discharge ED Provider: Krzysztof Díaz General Adult HPI General Chief complaint: Dizziness Stated complaint: passed out yesterday, hit head, h/a, nauseous Time Seen by Provider: 11/22/22 11:17 History of Present Illness HPI narrative: Is a 47-year-old female with history of hypertension, hyperlipidemia previous episodes of syncope presenting with syncopal episode. Patient states 1 day prior to arrival, she was at [employer] and being active when she felt lightheaded, syncopized and hit her head on the concrete floor. Was unconscious for just a few seconds, per family who saw her. Patient had no postictal period. Did not bite her tongue, did not urinate on herself. Patient has been acting normally since, denies nausea, vomiting, confusion, vision changes, weakness anywhere in her body, chest pain, palpitations, diaphoresis, or any other concerns. Just before this episode, patient had lightheadedness, but no other symptoms Related Data Home Medications Medication Instructions Recorded Confirmed paroxetine HCl 20 mg tablet 10 mg PO QAM Depression 06/08/17 10/08/22 atorvastatin 80 mg tablet 80 mg PO HS High cholesterol 11/04/20 10/08/22 omeprazole 40 mg capsule,delayed 40 mg PO NEEDED PRN Heartburn 10/21/21 10/08/22 release tizanidine 4 mg tablet 4 mg PO NEEDED PRN Muscle Spasm 10/21/21 10/08/22 metformin 500 mg tablet 1,000 mg PO BID Diabetes 12/14/21 10/08/22 multivitamin 1 tab PO DAILY Diet supplement 12/14/21 10/08/22 albuterol sulfate 90 mcg/actuation 90 mcg inhalation NEEDED PRN 10/08/22 10/08/22 aerosol inhaler (Ventolin HFA) Asthma aspirin 81 mg chewable tablet 81 mg PO AM Blood thinner 10/08/22 10/08/22 bisoprolol fumarate 5 mg
[2022-11-22 11:20] VITALS: BP 124/62; PULSE 72; O2SAT 99
--- NOTE | 2022-11-22 11:22 | PC.NURSE ---
Glucose was 155
[2022-11-22 11:27] LABS: POC Glucose,Bedside 155 (70-110)
[2022-11-22 11:28] VITALS: BP 131/69; PULSE 77; O2SAT 97
[2022-11-22 11:30] VITALS: BP 124/62; BP 124/66; PULSE 77; RESP 16; TEMP 36.8; O2SAT 97; O2SAT 98; BMI 42.5
--- NOTE | 2022-11-22 11:44 | ECG_ITS ---
APPROVED REPORT Exam: Resting ECG HR:73 bpm ECG Measurements Heart Rate 73 AXES ID 189 P 42 QRSd 91 QRS 72 QT 376 T 19 QTc 401 Conclusion SINUS RHYTHM LOW QRS VOLTAGE IN PRECORDIAL LEADS [QRS DEFLECTION < 1.0 mV IN CHEST LEADS] BORDERLINE ECG UNCONFIRMED REPORT Electronically signed by : Grant Riley MD 11/23/2022 20:49:49
[2022-11-22 11:45] LABS: Basophils % 0.4 % (0.1-2.0); Eosinophils # 0.3 K/mm3 (0.0-0.4); Eosinophils % 3.1 % (0.1-12.0); Hematocrit 42.5 % (37.0-47.0); Hemoglobin 13.3 g/dL (12.2-16.2); Lymphocytes # 3.5 K/mm3 (0.7-4.5); Lymphocytes % 33.8 % (10-50); Mean Corpuscular HGB Conc 31.4 g/dL (31.8-35.4); Mean Corpuscular Hemoglobin 27.5 pg (27.0-31.2); Mean Corpuscular Volume 87.6 fl (81-99); Mean Platelet Volume 8.2 fl (7.4-10.4); Monocytes # 0.3 K/mm3 (0.1-1.0); Monocytes % 3.2 % (1.7-9.3); Neutrophils # 6.1 K/mm3 (1.8-7.8); Neutrophils % 59.5 % (37.0-80.0); Platelet Count 373 K/mm3 (142-424); Red Blood Count 4.85 M/mm3 (4.20-5.40); Red Cell Distribution Width 14.6 % (11.5-17.5); White Blood Count 10.2 K/mm3 (4.8-10.8)
[2022-11-22 11:53] LABS: Alanine Aminotransferase 43 U/L (12-78); Albumin Level 4.4 g/dl (3.5-5.0); Albumin/Globulin Ratio 1.3 (1.1-1.8); Alkaline Phosphatase 117 U/L (38-126); Anion Gap 14.8 mEq/L (5-15); Aspartate Amino Transferase 50 U/L (14-36); Bilirubin,Total 0.2 mg/dl (0.2-1.3); Blood Urea Nitrogen 16 mg/dl (7-17); Calcium 9.2 mg/dl (8.4-10.2); Carbon Dioxide 30 mmol/L (22.0-30.0); Chloride 99 mmol/L (98-107); Creatinine Clearance Estimated 115 mL/min (50-200); Estimated Glomerular Filt Rate 132 ml/min (>60); GFR (African American) 160 ML/MIN (>60); Globulin 3.4 g/dL (1.3-3.2); Glucose 140 mg/dl (74-100); Potassium 3.8 mmoL/L (3.5-5.1); Sodium 140 mmol/L (136-145); Total Protein,Serum 7.8 g/dl (6.3-8.2)
[2022-11-22 12:01] VITALS: BP 129/64; PULSE 73; O2SAT 98
[2022-11-22 12:11] LABS: T4 (Thyroxine) 10.7 ug/dl (5.53-11.0)
[2022-11-22 12:25] LABS: Thyroid Stimulating Hormone 5.68 uIU/mL (0.465-4.68)
[2022-11-22 12:31] VITALS: BP 115/55; PULSE 74; RESP 18; O2SAT 97
[2022-11-22 13:03] VITALS: BP 107/66; PULSE 57; RESP 16; TEMP 36.6
== END 2022-11-22 13:04 | disposition home or self-care (01) ==
PROVIDERS: Emergency Provider Emergency Medicine; PCP Internal Medicine
DX: R51.9 Headache, unspecified (principal); R55 Syncope and collapse; R42 Dizziness and giddiness; H66.92 Otitis media, unspecified, left ear; Z87.891 Personal history of nicotine dependence; I10 Essential (primary) hypertension; E78.5 Hyperlipidemia, unspecified
CPT/HCPCS: 80053; 82962; 84436; 84443; 85025; 93005; 99285

== ENCOUNTER 2023-02-06 15:29 | Emergency (ER) | payer OTHER, SELFPAY ==
[2023-02-06 16:30] VITALS: BP 148/83; PULSE 90; RESP 18; TEMP 37.2; O2SAT 95; BMI 43.9
--- NOTE | 2023-02-06 16:39 | EXP.UTC ---
Discharge Plan Disposition Patient Disposition: Home, Self-Care Condition: Good Prescriptions Prescriptions: New azithromycin [Zithromax] 250 mg tablet 250 mg PO UD DOSE PK Qty: 6 0RF Rx Instructions: Take two (2) tablets today, then one (1) tablet days #2 thru #5 benzonatate [benzonatate] 100 mg capsule 100 mg PO TIDP PRN (Reason: Cough) Qty: 30 0RF methylprednisolone 4 mg Tablets,Dose Pack 4 mg PO DIRECTED Qty: 21 0RF ondansetron 4 mg Tablet,Disintegrating 4 mg PO Q8H PRN (Reason: Nausea) Qty: 12 0RF No Action omeprazole 40 mg capsule,delayed release(DR/EC) 40 mg PO NEEDED PRN (Reason: Heartburn) tizanidine 4 mg tablet 4 mg PO NEEDED PRN (Reason: Muscle Spasm) multivitamin Tablet 1 tab PO DAILY metformin 500 mg tablet 1,000 mg PO BID paroxetine HCl 20 mg tablet 10 mg PO QAM atorvastatin 80 mg tablet 80 mg PO HS hydrochlorothiazide 12.5 mg tablet See Rx Instructions .ROUTE .COMPLEX Qty: 90 1RF Dose Instruction: Take 1 tablet by mouth once daily Rx Instructions: Take 1 tablet by mouth once daily bisoprolol fumarate 5 mg tablet See Rx Instructions .ROUTE .COMPLEX Qty: 90 1RF Dose Instruction: Take 1 tablet by mouth once daily Rx Instructions: Take 1 tablet by mouth once daily albuterol sulfate 8.5 GM HFA aerosol inhaler 2 puffs IH Q6HP PRN (Reason: Shortness Of Breath) 30 Days Qty: 1 5RF albuterol sulfate [Ventolin HFA] 90 mcg/actuation HFA aerosol inhaler 90 mcg INHALATION NEEDED PRN (Reason: Asthma) glipizide 5 mg tablet 5 mg PO BID Patient Comments: TAKE ONE TABLET BY MOUTH TWICE DAILY Farxiga 10 mg tablet 10 mg PO AM aspirin [Aspirin Child] 81 mg Tablet,Chewable 81 mg PO AM azithromycin [azithromycin] 250 mg tablet 250 mg PO DIRECTED Qty: 6 0RF Rx Instructions: Take two (2) tablets on day #1, then one (1) tablet day #2 thru #5 ondansetron 4 MG tablet,disintegrating 4 mg PO Q8HP PRN (Reason: Nausea) Qty: 20 0RF amoxicillin 875 mg tablet 875 mg PO BID 10 Days Qty: 20 0RF Referrals Follow up/Referrals: Herbert Haro MD [Primary Care Provider] - See instructions Activity Restrictions/Add. Instructions Additional Instructions/Restrictions: Drink plenty of fluids. Take tylenol or ibuprofen for pain or fever. Take the medications as directed. Follow up with your regular doctor. GO TO THE ER FOR ANY WORSENING SYMPTOMS Clinical Impressions Clinical Impression: Acute viral syndrome, Bronchitis Instructions Patient Instructions: Acute Bronchitis, DI for Acute Bronchitis, DI for Viral Syndrome Discharge ED Provider: Jacques Knott [facility] [place] HPI General Stated complaint: BJ martin Time Seen by Provider: 02/06/23 16:39 History of Present Illness Provider Complaint: She states that for the past 4 days she has had had sinus and chest congestion. She has had a productive cough. She denies fever/chills. Related Data Home Medications Medication Instructions Recorded Confirmed paroxetine HCl 20 mg tablet 10 mg PO QAM Depression 06/08/17 10/08/22 atorvastatin 80 mg tablet 80 mg PO HS High cholesterol 11/04/20 10/08/22 omeprazole 40 mg capsule,delayed 40 mg PO NEEDED PRN Heartburn 10/21/21 10/08/22 release tizanidine 4 mg tablet 4 mg PO NEEDED PRN Muscle Spasm 10/21/21 10/08/22 metformin 500 mg tablet 1,000 mg PO BID Diabetes 12/14/21 10/08/22 multivitamin 1 tab PO DAILY Diet supplement 12/14/21 10/08/22 albuterol sulfate 90 mcg/actuation 90 mcg inhalation NEEDED PRN 10/08/22 10/08/22 aerosol inhaler (Ventolin HFA) Asthma aspirin 81 mg chewable tablet 81 mg PO AM Blood thinner 10/08/22 10/08/22 dapagliflozin propanediol 10 mg 10 mg PO AM Diabetes 10/08/22 10/08/22 tablet (Farxiga) glipizide 5 mg tablet 5 mg PO BID Diabetes 10/08/22 10/08/22 Previous Rx's Medication Instructions Recorded albuterol
[2023-02-06 17:18] VITALS: BP 148/83; PULSE 90; RESP 18; TEMP 37.2; O2SAT 95
== END 2023-02-06 17:18 | disposition home or self-care (01) ==
PROVIDERS: Emergency Provider Nurse Practitioner Family; PCP Internal Medicine
DX: J20.9 Acute bronchitis, unspecified (principal); Z87.891 Personal history of nicotine dependence
CPT/HCPCS: 87635; 99212; 99214; G0463

== ENCOUNTER 2023-04-22 13:36 | Outpatient (CLI) | payer OTHER, SELFPAY ==
[2023-04-22 14:28] LABS: Hemoglobin A1C 8.4 % (4.0-6.0)
[2023-04-22 14:36] LABS: Chloride 98 mmol/L (98-107); Sodium 138 mmol/L (136-145)
[2023-04-22 14:37] LABS: Potassium 4.5 mmoL/L (3.5-5.1)
[2023-04-22 14:39] LABS: Alanine Aminotransferase 43 U/L (12-78); Albumin Level 4.3 g/dl (3.5-5.0); Albumin/Globulin Ratio 1.5 (1.1-1.8); Alkaline Phosphatase 114 U/L (38-126); Anion Gap 13.5 mEq/L (5-15); Aspartate Amino Transferase 50 U/L (14-36); Bilirubin,Total 0.6 mg/dl (0.2-1.3); Blood Urea Nitrogen 14 mg/dl (7-17); Carbon Dioxide 31 mmol/L (22.0-30.0); Cholesterol 127 mg/dl (140-200); Estimated Glomerular Filt Rate 107 ml/min (>60); GFR (African American) 130 ML/MIN (>60); Globulin 2.9 g/dL (1.3-3.2); Total Protein,Serum 7.2 g/dl (6.3-8.2); Triglycerides 331 mg/dl (30-150); VLDL Cholesterol 66 mg/dL (0-40)
[2023-04-22 14:40] LABS: Calcium 9.2 mg/dl (8.4-10.2); Chol/HDL Ratio 4.5 (1-3.5); Glucose 169 mg/dl (74-100); HDL Cholesterol 28 mg/dl (40-60)
[2023-04-22 14:51] LABS: Direct LDL Cholesterol 62.86 mg/dL (100-129)
[2023-04-22 15:10] LABS: Thyroid Stimulating Hormone 3.09 uIU/mL (0.465-4.68)
== END 2023-04-22 23:59 ==
LOC: LAB.DROPOF 13:38
PROVIDERS: PCP Internal Medicine; Visit Provider Internal Medicine
DX: E11.42 Type 2 diabetes mellitus with diabetic polyneuropathy (principal); I10 Essential (primary) hypertension; E78.5 Hyperlipidemia, unspecified; R79.89 Other specified abnormal findings of blood chemistry; E66.01 Morbid (severe) obesity due to excess calories; Z68.41 Body mass index [BMI] 40.0-44.9, adult; Z79.84 Long term (current) use of oral hypoglycemic drugs; Z87.891 Personal history of nicotine dependence
CPT/HCPCS: 80053; 80061; 83036; 84443

== ENCOUNTER 2023-09-19 18:22 | Emergency (ER) | payer OTHER, SELFPAY ==
[2023-09-19 18:45] VITALS: BP 128/72; PULSE 77; RESP 20; TEMP 36.8; O2SAT 96; BMI 42.4
--- NOTE | 2023-09-19 19:06 | ED_ITS ---
Discharge Plan Disposition Patient Disposition: Home, Self-Care Condition: Good Prescriptions Prescriptions: New amoxicillin-pot clavulanate 875-125 mg tablet 1 tab PO Q12H Qty: 20 0RF loratadine 10 mg tablet 10 mg PO DAILY Qty: 30 0RF No Action omeprazole 40 mg capsule,delayed release(DR/EC) 40 mg PO NEEDED PRN (Reason: Heartburn) metformin 500 mg tablet 1,000 mg PO BID paroxetine HCl 20 mg tablet 10 mg PO QAM atorvastatin 80 mg tablet 80 mg PO HS bisoprolol fumarate 5 mg tablet See Rx Instructions .ROUTE .COMPLEX Qty: 90 1RF Dose Instruction: Take 1 tablet by mouth once daily Rx Instructions: Take 1 tablet by mouth once daily glipizide 5 mg tablet 5 mg PO BID Patient Comments: TAKE ONE TABLET BY MOUTH TWICE DAILY dapagliflozin propanediol [Farxiga] 10 mg tablet 10 mg PO AM aspirin [Aspirin Child] 81 mg Tablet,Chewable 81 mg PO AM Ozempic 0.25 mg or 0.5 mg (2 mg/3 mL) pen injector 0.25 mg SQ WEEKLY Patient Comments: INJECT 0.25 MG SUBCUTANEOUSLY ONCE A WEEK Referrals Follow up/Referrals: Herbert Haro MD [Primary Care Provider] - See instructions Clinical Impressions Clinical Impression: Acute otitis media of left ear with perforated tympanic membrane, Allergic rhinitis due to allergen Instructions Patient Instructions: DI for Middle Ear Infection-Adult, Allergic Rhinitis Discharge ED Provider: Praveena Robbins [facility] HPI General Stated complaint: sore throat,bilateral earache Mode of Arrival: Ambulatory Source of Information: Patient Limitations: No Limitations Time Seen by Provider: 09/19/23 19:05 Description of Symptoms (Recalled from Triage Doc. by RN): PATIENT C/O SORE THROAT, LEFT EAR PAIN, WATERY EYES, AND DRY MOUTH THAT STARTED THIS MORNING HEENT Symptoms (Recalled from RN notes): Yes Resp Symptoms (Recalled from RN notes): No Skin Symptoms (Recalled from RN notes): No MS Symptoms (Recalled from RN notes): No Functional Status (Recalled from RN notes): WNL History of Present Illness Provider Complaint: Pt reports that she has woke up with a sore throat, watery eyes, runny nose, and left ear pain. She denies taking anything for her symptoms. Related Data Home Medications Medication Instructions Recorded Confirmed paroxetine HCl 20 mg tablet 10 mg PO QAM Depression 06/08/17 09/19/23 atorvastatin 80 mg tablet 80 mg PO HS High cholesterol 11/04/20 09/19/23 omeprazole 40 mg capsule,delayed 40 mg PO NEEDED PRN Heartburn 10/21/21 09/19/23 release metformin 500 mg tablet 1,000 mg PO BID Diabetes 12/14/21 09/19/23 aspirin 81 mg chewable tablet 81 mg PO AM Blood thinner 10/08/22 09/19/23 dapagliflozin propanediol 10 mg 10 mg PO AM Diabetes 10/08/22 09/19/23 tablet (Farxiga) glipizide 5 mg tablet 5 mg PO BID Diabetes 10/08/22 09/19/23 semaglutide 0.25 mg or 0.5 mg (2 0.25 mg SQ WEEKLY 09/19/23 09/19/23 mg/3 mL) subcutaneous pen injector (Shoobs) Previous Rx's Medication Instructions Recorded bisoprolol fumarate 5 mg tablet See Rx Instructions .Route 06/08/23 .COMPLEX #90 tabs amoxicillin 875 mg-potassium 1 tab PO Q12H #20 tabs 09/19/23 clavulanate 125 mg tablet loratadine 10 mg tablet 10 mg PO DAILY #30 tabs 09/19/23 Allergies Allergy/AdvReac Type Severity Reaction Status Date / Time Tetracyclines [TETRACYCLINES] Allergy Unknown Hives Verified 02/06/23 16:56 Worker's Comp Is this a Worker's Comp case?: No [facility] Disclaimer: The information contained in this section may have been updated after the patient was seen, as this information can be updated by other users. Social History Smoking Status: Former smoker alcohol intake: never substance use type: denies use current occupational status: employed Travel in the last 8 weeks: None household members: spouse housing: house caffeine: No ROS Obtained: Yes All systems reviewed & no additional complaints except as documented Constitutional Constitutional: Reports system reviewed and no additional complaints, except as documented and Reports malaise Eyes Eyes: Reports system reviewed and no additional complaints, except as documented and Reports eye discharge Comments: clear watery discharge ENT Ears, Nose, Mouth, and Throat: Reports system reviewed and no additional complaints, except as documented, Reports otalgia, Reports nasal discharge and Reports sore throat Cardiovascular Cardiovascular: Reports system reviewed and no additional complaints, except as documented Respiratory Respiratory: Reports system reviewed and no additional complaints, except as documented Gastrointestinal Gastrointestingal: Reports system reviewed and no additional complaints, except as documented Genitourinary Female Genitourinary: Reports system reviewed and no additional complaints, except as documented Musculoskeletal Musculoskeletal: Reports system reviewed and no additional complaints, except as documented Integumentary/Breasts Skin/Breast: Reports system reviewed and no additional complaints, except as documented Neurologic Neurologic: Reports system reviewed and no additional complaints, except as documented Endocrine Endocrine: Reports system reviewed and no additional complaints, except as documented Hematologic/Lymphatic Henatologic/Lymphatic: Reports system reviewed and no additional complaints, except as documented Allergic/Immunologic Allergic/Immunologic: Reports system reviewed and no additional complaints, except as documented Physical Exam General General appearance: alert Comment: ill appearing Head Head exam: atraumatic and normocephalic Eye Eye exam: Present normal appearance and discharge (watery) Expanded ENT Exam External ear exam: Present normal external inspection TM/Canal exam: Left TM: erythema (TM is opaque with redness around the outside. ), perforation and loss of landmarks and Right TM: effusion Nasal speculum exam: Bilateral: other (clear drainage) Mouth exam: Present normal external inspection Teeth exam: Present normal inspection Throat exam: Present normal inspection and tonsillar erythema Neck Neck exam: Present normal inspection Chest Chest inspection: Present normal inspection and symmetric chest wall rise Respiratory Respiratory exam: Present normal lung sounds bilaterally Cardiovascular Cardiovascular exam: Present regular rate and normal rhythm Abdominal Exam Abdominal exam: Present soft Extremities Exam Extremities exam: Present normal inspection Back Exam Back exam: Present normal inspection Neurological Exam Neurological exam: Present alert and oriented X3 Psychiatric Psychiatric exam: Present normal affect and normal mood Skin Skin exam: Present warm, dry and intact Lymphatic Lymphatic Findings: no adenopathy Medical Decision Making Spencer Inquiry Pt receiving controlled substance: No Spencre was queried for this patient: No Vital Signs: 09/19/23 18:45 Temperature 98.3 F Temperature Source Oral Pulse Rate [Left Brachial] 77 Respiratory Rate 20 Blood Pressure [Left Arm] 128/72 Blood Pressure Mean [Left Arm] 90 Blood Pressure Source [Left Arm] Automatic Cuff Blood Pressure Position [Left Arm] Sitting 02 Sat by Pulse Oximetry 96 Oxygen Delivery Method Room Air
[2023-09-19 19:24] VITALS: BP 128/72; PULSE 77; RESP 20; TEMP 36.8; O2SAT 96
== END 2023-09-19 19:27 | disposition home or self-care (01) ==
PROVIDERS: Emergency Provider Nurse Practitioner Family; PCP Internal Medicine
DX: H72.92 Unspecified perforation of tympanic membrane, left ear (principal); H66.92 Otitis media, unspecified, left ear; J30.1 Allergic rhinitis due to pollen; R07.0 Pain in throat; R09.81 Nasal congestion; Z87.891 Personal history of nicotine dependence
CPT/HCPCS: 99212; 99214; G0463

== ENCOUNTER 2023-09-22 04:14 | Emergency (ER) | payer OTHER, SELFPAY ==
[2023-09-22 04:17] VITALS: BP 148/95; PULSE 110; RESP 20; TEMP 37.4; O2SAT 96; BMI 41.1
--- NOTE | 2023-09-22 04:25 | PC.NURSE ---
Sepsis protocol deferred per Attending provider at this time.
[2023-09-22 04:33] VITALS: BP 139/99; PULSE 106; O2SAT 96
[2023-09-22] MEDS: ACETAMINOPHEN 500MG TAB 1000 MG PO (04:34)
[2023-09-22] MEDS: LIDOCAINE 2% VISCOUS SOL 15ML UDC 15 ML PO (04:35)
--- NOTE | 2023-09-22 04:36 | [facility].EDGENADL ---
Discharge Plan Disposition Patient Disposition: Home, Self-Care Prescriptions Prescriptions: New [id number]-[id number]-[id number] 2-30-10 mg/5 mL syrup 5 ml PO Q4H PRN (Reason: cold symptoms) Qty: 118 0RF No Action omeprazole 40 mg capsule,delayed release(DR/EC) 40 mg PO NEEDED PRN (Reason: Heartburn) metformin 500 mg tablet 1,000 mg PO BID paroxetine HCl 20 mg tablet 10 mg PO QAM atorvastatin 80 mg tablet 80 mg PO HS bisoprolol fumarate 5 mg tablet See Rx Instructions .ROUTE .COMPLEX Qty: 90 1RF Dose Instruction: Take 1 tablet by mouth once daily Rx Instructions: Take 1 tablet by mouth once daily glipizide 5 mg tablet 5 mg PO BID Patient Comments: TAKE ONE TABLET BY MOUTH TWICE DAILY dapagliflozin propanediol [Farxiga] 10 mg tablet 10 mg PO AM aspirin [Aspirin Child] 81 mg Tablet,Chewable 81 mg PO AM Ozempic 0.25 mg or 0.5 mg (2 mg/3 mL) pen injector 0.25 mg SQ WEEKLY Patient Comments: INJECT 0.25 MG SUBCUTANEOUSLY ONCE A WEEK amoxicillin-pot clavulanate 875-125 mg tablet 1 tab PO Q12H Qty: 20 0RF loratadine 10 mg tablet 10 mg PO DAILY Qty: 30 0RF Referrals Follow up/Referrals: Herbert Haro MD [Primary Care Provider] - See instructions Activity Restrictions/Add. Instructions Additional Instructions/Restrictions: Please take decongestants as prescribed. Please take Tylenol and ibuprofen as needed for pain and fever. Please continue taking your antibiotics as prescribed. Consider using [id number] Afrin sparingly as needed. Consider using [id number] throat spray. Clinical Impressions Clinical Impression: URI (upper respiratory infection) Qualifiers: URI type: unspecified URI Qualified Code(s): J06.9 - Acute upper respiratory infection, unspecified Discharge ED Provider: Sung Mckeon Adult HPI General Chief complaint: Upper Respiratory Infection Stated complaint: throat pain, fever, ear pain, dizziness Time Seen by Provider: 09/22/23 04:15 Mode of Arrival: Wheelchair Source of Information: Patient Limitations: No Limitations Description of Symptoms (Recalled from ER Triage Doc. by RN): 48 F presents from home with c/o worsening flu-like symptoms. She was evaluated and treated in our [facility] on September 18. She was given an oral abx and allergy pill to start, which she has. Patient reports highest oral temp at home 102.6 which she medicated. She last had ibuprofen around 0345 prior to coming in. History of Present Illness HPI narrative: 48-year-old female with history of obesity, type 2 diabetes, prior strokes presents with upper respiratory symptoms. She was seen at urgent care 3 days ago and was diagnosed with otitis media and was prescribed Augmentin which she has been taking. She reports her symptoms feel like they have gotten worse despite treatment. She has been taking ibuprofen at home, no Tylenol. She reports throat pain, bilateral ear pain, dry cough, fever at home. She denies any chest pain or significant shortness of breath. She reports significant nasal congestion. Related Data Home Medications Medication Instructions Recorded Confirmed paroxetine HCl 20 mg tablet 10 mg PO QAM Depression 06/08/17 09/22/23 atorvastatin 80 mg tablet 80 mg PO HS High cholesterol 11/04/20 09/22/23 omeprazole 40 mg capsule,delayed 40 mg PO NEEDED PRN Heartburn 10/21/21 09/22/23 release metformin 500 mg tablet 1,000 mg PO BID Diabetes 12/14/21 09/22/23 aspirin 81 mg chewable tablet 81 mg PO AM Blood thinner 10/08/22 09/22/23 dapagliflozin propanediol 10 mg 10 mg PO AM Diabetes 10/08/22 09/22/23 tablet (Farxiga) glipizide 5 mg tablet 5 mg PO BID Diabetes 10/08/22 09/22/23 semaglutide 0.25 mg or 0.5 mg (2 0.25 mg SQ WEEKLY 09/19/23 09/22/23 mg/3 mL) subcutaneous pen injector (Ozempic) Previous Rx's Medication Instructions Recorded bisoprolol fumarate 5 mg tablet See Rx Instructions .Route 06/08/23 .COMPLEX #90 tabs amoxicillin 875 mg-potassium 1 tab PO Q12H #20 tabs 09/19/23 clavulanate 125 mg tablet loratadine 10 mg tablet 10 mg PO DAILY #30 tabs 09/19/23 [id number]-tmuyqvctijmljix-[id number] 5 ml PO Q4H PRN cold symptoms #118 09/22/23 2 mg-30 mg-10 mg/5 mL oral syrup mL Allergies Allergy/AdvReac Type Severity Reaction Status Date / Time Tetracyclines [TETRACYCLINES] Allergy Intermediate Hives Verified 09/22/23 04:26 [facility] Disclaimer: The information contained in this section may have been updated after the patient was seen, as this information can be updated by other users. Social History (Updated 09/22/23 @ 04:26 by Tyrel Villalobos RN) Smoking Status: Never smoker alcohol intake: never substance use type: denies use current occupational status: employed Travel in the last 8 weeks: None household members: spouse housing: house caffeine: No ROS Obtained: Yes All systems reviewed & no additional complaints except as documented Physical Exam General General appearance: alert Comment: Uncomfortable appearing Head Head exam: atraumatic and normocephalic Eye Eye exam: Present normal appearance, PERRL and EOMI ENT ENT exam: Present normal oropharynx, mucous membranes moist, TM's normal bilaterally, normal external ear exam and other (Significant nasal congestion noted) Neck Neck exam: Present normal inspection and full ROM Chest Chest inspection: Present normal inspection and symmetric chest wall rise; Absent tenderness Respiratory Respiratory exam: Present normal lung sounds bilaterally; Absent respiratory distress or wheezes Cardiovascular Cardiovascular exam: Present normal rhythm and tachycardia Abdominal Exam Abdominal exam: Present soft; Absent distention, tenderness or guarding Extremities Exam Extremities exam: Present normal inspection; Absent edema or joint swelling Back Exam Back exam: Present normal inspection; Absent tenderness Neurological Exam Neurological exam: Present alert and oriented X3; Absent motor sensory deficit Psychiatric Psychiatric exam: Present normal affect and normal mood Skin Skin exam: Present warm, dry and normal color Lymphatic Lymphatic Findings: no adenopathy Medical Decision Making Medical Records Medical records reviewed: Yes I reviewed the patient's medical records. Spencer Inquiry Pt receiving controlled substance: No Spencer was queried for this patient: No Vital Signs: 09/22/23 04:17 Temperature 99.4 F Temperature Source Oral Pulse Rate [Left] 110 H Respiratory Rate 20 Blood Pressure [Right Arm] 148/95 H Blood Pressure Mean [Right Arm] 112 Blood Pressure Source [Right Arm] Automatic Cuff Blood Pressure Position [Right Arm] Sitting 02 Sat by Pulse Oximetry 96 Oxygen Delivery Method Room Air Lab Data Lab results reviewed: Yes I reviewed the patient's lab results. Orders (Tests/Meds): ED MEDICATIONS Generic Name Dose Route Start Last Admin Trade Name Freq PRN Reason Stop Dose Admin Acetaminophen 1,000 mg 09/22/23 04:32 09/22/23 04:34 Acetaminophen 500mg Tab PO 09/22/23 04:33 1,000 mg ONCE ONE Administration Lidocaine HCl 15 ml 09/22/23 04:32 09/22/23 04:35 Lidocaine 2% Viscous Coreen 15ml Udc PO 09/22/23 04:33 15 ml ONCE ONE Administration Medical Decision Narrative: 48-year-old female with history of azi-nscycjs-yzibtilcv diabetes, obesity, prior stroke presents with worsening throat and ear pain, nasal congestion, dry cough, intermittent fevers at home despite oral antibiotic therapy for ear infection diagnosed 3 days ago.. History was obtained interactive discussion with patient, chart review. On arrival, patient is afebrile, minimally tachycardic, satting appropriately, A&O x 4, moving all extremities spontaneously. Full physical exam performed and significant for clear posterior oropharynx without erythema or exudate, clear TMs bilaterally, clear lungs bilaterally. Differential includes but is not limited to viral upper respiratory infection, sinusitis, otitis media, pharyngitis, pneumonia. Patient was given viscous lidocaine for symptomatic management and correction of underlying abnormalities. Patient flagged positive for sepsis per nursing. In my clinical judgment, I do not feel any blood work, fluids or further assessment are medically indicated at this time. Given patient history, exam and workup, patient's presentation most likely represents viral upper respiratory infection. Patient's exam is seemingly improved from when she was seen 3 days ago, though her symptoms have worsened. No evidence of acute bacterial infection at this time given clear lungs, clear TMs, clear oropharynx. Patient is already on antibiotics that would cover otitis, strep pharyngitis, bacterial sinusitis etc. I had an interactive discussion with patient regarding her symptoms. Patient was prescribed Bromfed pseudoephedrine dextromethorphan for symptomatic care. Also discussed the sparing use of nasal decongestant such as Afrin. Gave instructions regarding Tylenol ibuprofen dosing. Recommend she continue taking antibiotics as prescribed. She was discharged in stable condition with return precautions. Procedures Risk/Benefits of Procedure(s) Were Explained: Yes Critical Care Critical Care Time Critical Care Time: No
[2023-09-22 04:38] VITALS: BP 139/99; PULSE 95; RESP 18; TEMP 37.4; O2SAT 96
== END 2023-09-22 04:44 | disposition home or self-care (01) ==
PROVIDERS: Emergency Provider Emergency Medicine; PCP Internal Medicine
DX: H92.03 Otalgia, bilateral (principal); R07.0 Pain in throat; R05.9 Cough, unspecified; J06.9 Acute upper respiratory infection, unspecified
CPT/HCPCS: 99283

== ENCOUNTER 2023-09-23 00:14 | Emergency (ER) | payer OTHER, SELFPAY ==
[2023-09-23 00:16] VITALS: BP 134/93; PULSE 111; RESP 18; TEMP 38.4; O2SAT 96; BMI 39.8
--- NOTE | 2023-09-23 00:17 | ED_ITS ---
Discharge Plan Disposition Patient Disposition: Home, Self-Care Prescriptions Prescriptions: New lidocaine HCl [Lidocaine Viscous] 2 % solution 1 applic mucous membrane Q6H PRN (Reason: pain) Qty: 100 0RF No Action omeprazole 40 mg capsule,delayed release(DR/EC) 40 mg PO NEEDED PRN (Reason: Heartburn) metformin 500 mg tablet 1,000 mg PO BID paroxetine HCl 20 mg tablet 10 mg PO QAM atorvastatin 80 mg tablet 80 mg PO HS bisoprolol fumarate 5 mg tablet See Rx Instructions .ROUTE .COMPLEX Qty: 90 1RF Dose Instruction: Take 1 tablet by mouth once daily Rx Instructions: Take 1 tablet by mouth once daily glipizide 5 mg tablet 5 mg PO BID Patient Comments: TAKE ONE TABLET BY MOUTH TWICE DAILY dapagliflozin propanediol [Farxiga] 10 mg tablet 10 mg PO AM aspirin [Aspirin Child] 81 mg Tablet,Chewable 81 mg PO AM Ozempic 0.25 mg or 0.5 mg (2 mg/3 mL) pen injector 0.25 mg SQ WEEKLY Patient Comments: INJECT 0.25 MG SUBCUTANEOUSLY ONCE A WEEK amoxicillin-pot clavulanate 875-125 mg tablet 1 tab PO Q12H Qty: 20 0RF loratadine 10 mg tablet 10 mg PO DAILY Qty: 30 0RF lbqibusajlpflvy-xosdrlnxy-MY 2-30-10 mg/5 mL syrup 5 ml PO Q4H PRN (Reason: cold symptoms) Qty: 118 0RF Referrals Follow up/Referrals: Herbert Haro MD [Primary Care Provider] - See instructions Activity Restrictions/Add. Instructions Additional Instructions/Restrictions: Please continue taking Tylenol and ibuprofen at home as needed for pain and fever. Please continue taking antibiotics as prescribed. Continue using nasal decongestants as needed. Please use viscous lidocaine at home as needed. Please try to remain hydrated. Clinical Impressions Clinical Impression: Acute dehydration, Adenovirus infection, Lymphadenopathy Discharge ED Provider: Sung Mckeon Adult HPI General Chief complaint: Fever Stated complaint: ear pain, fever Time Seen by Provider: 09/23/23 00:17 History of Present Illness HPI narrative: 40-year-old female with history of type 2 diabetes presents for persistent fever, ear pain, sore throat. She was initially seen on 09/18, 4 days ago at the urgent care where she was diagnosed with an acute left ear infection. She was started on Augmentin. She continued to have fevers despite this treatment and she was seen in the ER last night. At that time her ears did not appear significantly infected, her throat was clear, she had significant sinus congestion but was not acutely ill-appearing. Most consistent with viral syndrome. Tonight she returns because she feels much worse, she has been unable to eat or drink due to throat pain, she is still febrile despite taking antibiotics as prescribed. She reports facial pain, bilateral ear pain, neck pain, throat pain. Related Data Home Medications Medication Instructions Recorded Confirmed paroxetine HCl 20 mg tablet 10 mg PO QAM Depression 06/08/17 09/22/23 atorvastatin 80 mg tablet 80 mg PO HS High cholesterol 11/04/20 09/22/23 omeprazole 40 mg capsule,delayed 40 mg PO NEEDED PRN Heartburn 10/21/21 09/22/23 release metformin 500 mg tablet 1,000 mg PO BID Diabetes 12/14/21 09/22/23 aspirin 81 mg chewable tablet 81 mg PO AM Blood thinner 10/08/22 09/22/23 dapagliflozin propanediol 10 mg 10 mg PO AM Diabetes 10/08/22 09/22/23 tablet (Farxiga) glipizide 5 mg tablet 5 mg PO BID Diabetes 10/08/22 09/22/23 semaglutide 0.25 mg or 0.5 mg (2 0.25 mg SQ WEEKLY 09/19/23 09/22/23 mg/3 mL) subcutaneous pen injector (Ozempic) Previous Rx's Medication Instructions Recorded bisoprolol fumarate 5 mg tablet See Rx Instructions .Route 06/08/23 .COMPLEX #90 tabs amoxicillin 875 mg-potassium 1 tab PO Q12H #20 tabs 09/19/23 clavulanate 125 mg tablet loratadine 10 mg tablet 10 mg PO DAILY #30 tabs 09/19/23 plmoribzcgwulgg-fengqdkeupntdhv-PT 5 ml PO Q4H PRN cold symptoms #118 09/22/23 2 mg-30 mg-10 mg/5 mL oral syrup mL lidocaine HCl 2 % mucosal solution 1 applic mucous membrane Q6H PRN 09/23/23 (Lidocaine Viscous) pain #100 mL Allergies Allergy/AdvReac Type Severity Reaction Status Date / Time Tetracyclines [TETRACYCLINES] Allergy Intermediate Hives Verified 09/22/23 04:26 PFSH PFSH Disclaimer: The information contained in this section may have been updated after the patient was seen, as this information can be updated by other users. Social History (Updated 09/22/23 @ 04:26 by Tyrel Villalobos RN) Smoking Status: Unknown if ever smoked alcohol intake: never substance use type: denies use current occupational status: employed Travel in the last 8 weeks: None household members: spouse housing: house caffeine: No ROS Obtained: Yes All systems reviewed & no additional complaints except as documented Physical Exam General General appearance: alert Comment: Crying, uncomfortable appearing Head Head exam: atraumatic and normocephalic Eye Eye exam: Present normal appearance, PERRL and EOMI ENT ENT exam: Present normal external ear exam and other (No intraoral erythema or swelling, no mastoid tenderness, TMs are pale and nonbulging bilaterally. No erythema of the EAC. Marked sinus congestion noted, facial tenderness noted.) Neck Neck exam: Present full ROM and lymphadenopathy (Bilateral tender lymphadenopathy) Chest Chest inspection: Present normal inspection and symmetric chest wall rise; Absent tenderness Respiratory Respiratory exam: Present normal lung sounds bilaterally; Absent respiratory distress Cardiovascular Cardiovascular exam: Present normal rhythm and tachycardia Abdominal Exam Abdominal exam: Present soft; Absent distention, tenderness or guarding Extremities Exam Extremities exam: Present normal inspection; Absent edema or joint swelling Back Exam Back exam: Present normal inspection; Absent tenderness Neurological Exam Neurological exam: Present alert and oriented X3; Absent motor sensory deficit Psychiatric Psychiatric exam: Present normal affect and normal mood Skin Skin exam: Present warm, dry and normal color Lymphatic Lymphatic Findings: no adenopathy Medical Decision Making Medical Records Medical records reviewed: Yes I reviewed the patient's medical records. Spencer Inquiry Pt receiving controlled substance: No Spencer was queried for this patient: No Vital Signs: 09/23/23 00:16 09/23/23 00:28 09/23/23 00:28 Temperature 101.2 F H 99.5 F Temperature Source Axillary Oral Axillary Pulse Rate 89 Pulse Rate [Left] 111 H Respiratory Rate 18 18 Blood Pressure 148/84 H Blood Pressure [Right Arm] 134/93 H Blood Pressure Mean [Right Arm] 106 Blood Pressure Source Blood Pressure Position 02 Sat by Pulse Oximetry 96 95 Oxygen Delivery Method Room Air Room Air 09/23/23 03:53 Temperature 98.1 F Temperature Source Oral Pulse Rate 83 Pulse Rate [Left] Respiratory Rate 16 Blood Pressure 119/68 Blood Pressure [Right Arm] Blood Pressure Mean [Right Arm] Blood Pressure Source Automatic Cuff Blood Pressure Position Sitting 02 Sat by Pulse Oximetry 93 L Oxygen Delivery Method Room Air Lab Data Lab results reviewed: Yes I reviewed the patient's lab results. Lab Results 09/23/23 00:35: Chlamy pneumoniae PCR Not detected, Adenovirus (PCR) Detected A, B. pertussis DNA (PCR) Not detected, Coronavirus OC43 (PCR) Not detected, Coronavirus HKU1 (PCR) Not detected, Coronavirus 229E (PCR) Not detected, SARS-CoV-2 (PCR) Not detected, Coronavirus NL63 (PCR) Not detected, Human Metapneumovir PCR Not detected, Influenza A (H1) PCR Not detected, Influ A (H1N1/09) PCR Not detected, Influenza A (H3) PCR Not detected, Influenza Type A (PCR) Not detected, Influenza Type B (PCR) Not detected, M. pneumoniae (PCR) Not detected, Parainfluenza 1 (PCR) Not detected, Parainfluenza 2 (PCR) Not detected, Parainfluenza 3 (PCR) Not detected, Parainfluenza 4 (PCR) Not detected, RSV (PCR) Not detected, Entero/Rhino (PCR) Not detected, Group A Strep Rapid Negative 09/23/23 00:39: WBC 12.2 H, RBC 5.21, Hgb 14.7, Hct 46.3, MCV 88.8, MCH 28.3, MCHC 31.8, RDW 15.4, Plt Count 322, MPV 8.3, Neut % (Auto) 79.3, Lymph % (Auto) 12.3, [place] % (Auto) 4.1, Eos % (Auto) 2.1, Baso % (Auto) 2.2 H, Neut # (Auto) 9.7 H, Lymph # (Auto) 1.5, [place] # (Auto) 0.5, Eos # (Auto) 0.3, Baso # (Auto) 0.3 H, Sodium 133 L, Potassium 3.6, Chloride 94 L, Carbon Dioxide 24, Anion Gap 18.6 H, BUN 10, Creatinine 0.60, Estimated Creat Clear 185, Estimated GFR 107, Est GFR ( Amer) 129, Glucose 140 H, Calcium 9.7, Magnesium 1.6, Total Bilirubin 1.0, AST 48 H, ALT 43, Alkaline Phosphatase 115, Total Protein 8.2, Albumin 4.6, Globulin 3.6 H, Albumin/Globulin Ratio 1.3, Serum HCG, Qual Negative, Monoscreen Negative 09/23/23 01:30: Urine Color Yellow, Urine Appearance Clear, Urine pH 5.5, Ur Specific [place] 1.025, Urine Protein Negative, Urine Glucose (UA) 2+, Urine Ketones 1+, Urine Blood Negative, Urine Nitrate Negative, Urine Bilirubin Negative, Urine Urobilinogen 0.2, Ur Leukocyte Esterase Negative, Urine WBC 3-5, Ur Squamous Epith Cells Occasional, Urine Bacteria 1+, Urine Yeast Occasional 09/23/23 00:39 09/23/23 00:39 Orders (Tests/Meds): ED MEDICATIONS Generic Name Dose Route Start Last Admin Trade Name Freq PRN Reason Stop Dose Admin Sodium Chloride 10 ml 09/23/23 01:32 09/23/23 01:33 Sodium Chloride 0.9% 10ml Syr (Rad Only) IV 10/23/23 01:31 10 ml NEEDED PRN Administration Maintain IV Site Discontinued Medications Generic Name Dose Route Start Last Admin Trade Name Freq PRN Reason Stop Dose Admin Acetaminophen 1,000 mg 09/23/23 00:32 09/23/23 00:51 Acetaminophen 1,000mg/100ml Vial IV 09/23/23 00:33 1,000 mg ONCE ONE Administration Sodium Chloride 1,000 mls @ 999 mls/hr 09/23/23 00:45 09/23/23 02:00 Sod Chlor 0.9% 1000ml Bag IV 09/23/23 02:45 999 mls/hr .Q1H1M RADHA Administration Iopamidol 75 ml 09/23/23 01:32 09/23/23 01:33 Iopamidol-370 (76%);100ml Bottle IV 09/23/23 01:33 75 ml ONCE ONE Administration Lidocaine HCl 15 ml 09/23/23 00:32 09/23/23 00:51 Lidocaine 2% Viscous Coreen 15ml Udc PO 09/23/23 00:33 15 ml ONCE ONE Administration Morphine Sulfate 4 mg 09/23/23 00:32 09/23/23 00:51 Morphine 4mg/Ml Syringe IV 09/23/23 00:33 4 mg ONCE ONE Administration ORDERS Category Date Time Status CT facial bones wo con Stat Cat Scan 09/23/23 00:[address] head/brain wo/w con Stat Cat Scan 09/23/23 00:[address] soft tissue neck w con Stat Cat Scan 09/23/23 00:32 Completed CBC w/Auto Diff [Complete Blood Count Auto Diff] Stat Lab 09/23/23 00:39 Completed CMP [Comprehensive Metabolic Panel] Stat Lab 09/23/23 00:39 Completed Full Resp Panel w/COVID ([facility]) Routine Lab 09/23/23 00:35 Completed HCG Qualitative, Serum Stat Lab 09/23/23 00:39 Completed Magnesium Stat Lab 09/23/23 00:39 Completed Monoscreen (Rapid) Stat Lab 09/23/23 00:39 Completed Strep Scrn Group A (Rapid) Stat Lab 09/23/23 00:35 Completed UA [Urinalysis and Microscopic] Stat Lab 09/23/23 01:30 Completed Blood Culture Stat Micro 09/23/23 01:43 Received Strep Screen Confirmation Stat Micro 09/23/23 00:35 Received Tissue Perfus/Sepsis Re-Eval Sepsis Re-Evaluation Performed: Yes Date Performed: 09/23/23 Time Performed: 01:17 Medical Decision Narrative: 48-year-old female with history of type 2 diabetes presents with persistent fever, bilateral ear pain worse on the left, throat pain, decreased oral intake despite taking Augmentin as prescribed for ear infection diagnosed on 09/18, 4 days ago. History was obtained interactive discussion with patient, chart review. On arrival, patient is febrile, mildly tachycardic, normotensive, GCS 15, intermittently crying and uncomfortable appearing secondary to pain, moving all extremities spontaneously. Full physical exam performed and significant for clear throat with dry mucous membranes, unremarkable TMs and mastoids, tender cervical lymphadenopathy bilateral, marked sinus congestion and some sinus tenderness. Differential includes but is not limited to otitis media, otitis externa, mastoiditis sinusitis, invasive sinusitis, viral/bacterial pharyngitis, RPA, SAMPLE TAKER OPERATOR, URI, mononucleosis, lymphadenitis, bacteremia, dehydration Patient was given 2 L IV fluid bolus, IV Tylenol, IV morphine, p.o. viscous lidocaine for symptomatic management and correction of underlying abnormalities. Full sepsis bolus was not indicated at this time. Workup initiated including blood cultures CBC CMP mag beta-hCG UA Monospot viral panel strep swab CT head CT face CT neck with contrast. On re-evaluation, patient is afebrile and reports some symptomatic improvement. Laboratory workup independently interpreted by me and significant for adenovirus infection, no significant electrolyte derangement, no evidence of a bacterial infection.. Imaging independently interpreted by me and significant for no evidence of invasive sinusitis, RPA SAMPLE TAKER OPERATOR etc. Does show marked reactive cervical lymphadenopathy. See radiology read for full review of final results. Admission for IV antibiotic therapy was considered, but deemed unnecessary due to viral infection. Given patient history, exam and workup, patient's presentation most likely represents acute adenovirus infection, possibly in conjunction with the ear infection that was reportedly noted on the third. I had an extensive and interactive discussion with patient regarding her presentation. She was discharged in stable condition with additional medications for symptomatic care. Return precautions given. Procedures Risk/Benefits of Procedure(s) Were Explained: Yes Critical Care Critical Care Time Critical Care Time: No
[2023-09-23 00:28] VITALS: BP 148/84; PULSE 89; RESP 18; TEMP 37.5; O2SAT 95
--- NOTE | 2023-09-23 00:32 | CT_ITS ---
PROCEDURE INFORMATION: Exam: CT Head Without And With Contrast Exam date and time: 09/23/2023 1:15 AM Age: 48 years old Clinical indication: Other: Facial pain, ear pain, severe sinusitis, fever TECHNIQUE: Imaging protocol: Computed tomography of the head without and with contrast. Radiation optimization: All CT scans at this facility use at least one of these dose optimization techniques: automated exposure control; mA and/or kV adjustment per patient size (includes targeted exams where dose is matched to clinical indication); or iterative reconstruction. Contrast material: ISOVUE; Contrast volume: 75 ml; Contrast route: IV; COMPARISON: CT FACIAL BONES WO CON 09/23/2023 1:12 AM FINDINGS: Brain: Normal appearing brain parenchyma without intraparenchymal hemorrhage and normal lo-white matter differentiation/no obvious acute ischemic stroke. No intra-or extra-axial fluid collection, no supra-or infratentorial mass, no mass effect or midline shift. Cerebral ventricles: Ventricles, sulci and basal cisterns are normal in size without hydrocephalus. Paranasal sinuses: No significant mucoperiosteal thickening in the visualized paranasal sinuses. Mastoid air cells: No mastoid effusion. Bones: Visualized skull bones are grossly normal. Soft tissues: No abnormal intracranial enhancement. IMPRESSION: No evidence of an acute intracranial hemorrhage, mass lesion or obvious acute ischemic infarction. PROCEDURE INFORMATION: Exam: CT Neck With Contrast Exam date and time: 09/23/2023 1:15 AM Age: 48 years old Clinical indication: Neck pain; Additional info: Worsening throat/neck pain, fever, lad TECHNIQUE: Imaging protocol: Computed tomography of the neck with contrast. Radiation optimization: All CT scans at this facility use at least one of these dose optimization techniques: automated exposure control; mA and/or kV adjustment per patient size (includes targeted exams where dose is matched to clinical indication); or iterative reconstruction. Contrast material: ISOVUE; Contrast volume: 75 ml; Contrast route: IV; COMPARISON: No relevant prior studies available. FINDINGS: Soft tissues: Marked adenoidal hyperplasia with heterogenous enhancement and small amount of dependent fluid/secretions within the nasopharynx. Nodular lymphoid hyperplasia at the base of the tongue/vallecula. . Pharynx: Pharynx, oral cavity, parapharyngeal, carotid and reconciling clerk spaces are normal. . Salivary glands: Parotid and submandibular salivary glands bilaterally are symmetric and normal in size and attenuation. . Larynx: Larynx, epiglottis and laryngeal/thyroid cartilages are normal. . Thyroid gland: Thyroid gland is normal in size and attenuation without discernible nodules. Prevertebral space: Prevertebral soft tissues are normal without a fluid collection or abnormality. . Lymph nodes: Numerous hzwp-qx-pewgmzoadp enlarged reactive lymph nodes in the neck including multiple enhancing retropharyngeal lymph nodes. . Vasculature: Neck vessels enhance normally bilaterally. Retropharyngeal course of the carotid arteries. . Paranasal sinuses/mastoid air cells: No significant mucoperiosteal thickening in the visualized paranasal sinuses. . Other findings: Platelike atelectasis in the RIGHT middle lobe and calcific granuloma on the LEFT. Orbits are grossly normal. Visualized intracranial structures are unremarkable. . Bones: Mild degenerative changes in the visualized spine. IMPRESSION: 1. Findings suspicious for severe upper respiratory tract infection and extensive reactive lymphadenitis. 2. Unremarkable paranasal sinuses without evidence of significant acute or chronic sinus infection. 3. Other nonemergent/incidental findings as described.
--- NOTE | 2023-09-23 00:32 | CT_ITS ---
PROCEDURE INFORMATION: Exam: CT Neck With Contrast Exam date and time: 09/23/2023 1:15 AM Age: 48 years old Clinical indication: Neck pain; Additional info: Worsening throat/neck pain, fever, lad TECHNIQUE: Imaging protocol: Computed tomography of the neck with contrast. Radiation optimization: All CT scans at this facility use at least one of these dose optimization techniques: automated exposure control; mA and/or kV adjustment per patient size (includes targeted exams where dose is matched to clinical indication); or iterative reconstruction. Contrast material: ISOVUE; Contrast volume: 75 ml; Contrast route: IV; COMPARISON: No relevant prior studies available. FINDINGS: Soft tissues: Marked adenoidal hyperplasia with heterogenous enhancement and small amount of dependent fluid/secretions within the nasopharynx. Nodular lymphoid hyperplasia at the base of the tongue/vallecula. . Pharynx: Pharynx, oral cavity, parapharyngeal, carotid and binding cutter synthetic cloth spaces are normal. . Salivary glands: Parotid and submandibular salivary glands bilaterally are symmetric and normal in size and attenuation. . Larynx: Larynx, epiglottis and laryngeal/thyroid cartilages are normal. . Thyroid gland: Thyroid gland is normal in size and attenuation without discernible nodules. Prevertebral space: Prevertebral soft tissues are normal without a fluid collection or abnormality. . Lymph nodes: Numerous ucpy-mp-lsfyhgcxte enlarged reactive lymph nodes in the neck including multiple enhancing retropharyngeal lymph nodes. . Vasculature: Neck vessels enhance normally bilaterally. Retropharyngeal course of the carotid arteries. . Paranasal sinuses/mastoid air cells: No significant mucoperiosteal thickening in the visualized paranasal sinuses. . Other findings: Platelike atelectasis in the RIGHT middle lobe and calcific granuloma on the LEFT. Orbits are grossly normal. Visualized intracranial structures are unremarkable. . Bones: Mild degenerative changes in the visualized spine. IMPRESSION: 1. Findings suspicious for severe upper respiratory tract infection and extensive reactive lymphadenitis. 2. Unremarkable paranasal sinuses without evidence of significant acute or chronic sinus infection. 3. Other nonemergent/incidental findings as described.
--- NOTE | 2023-09-23 00:32 | CT_ITS ---
PROCEDURE INFORMATION: Exam: CT Maxillofacial and Orbits Without Contrast Exam date and time: 09/23/2023 1:12 AM Age: 48 years old Clinical indication: Fever and sinusitis; Type not specified; Additional info: Facial pain, severe sinusitis TECHNIQUE: Imaging protocol: Computed tomography of the maxillofacial including orbits without contrast. Radiation optimization: All CT scans at this facility use at least one of these dose optimization techniques: automated exposure control; mA and/or kV adjustment per patient size (includes targeted exams where dose is matched to clinical indication); or iterative reconstruction. COMPARISON: No relevant prior studies available. FINDINGS: Soft tissues: Marked adenoidal hyperplasia with heterogenous enhancement and small amount of dependent fluid/secretions within the nasopharynx. Nodular lymphoid hyperplasia at the base of the tongue/vallecula. . Pharynx: Pharynx, oral cavity, parapharyngeal, carotid and oxygen equipment technician spaces are normal. . Salivary glands: Parotid and submandibular salivary glands bilaterally are symmetric and normal in size and attenuation. . Larynx: Larynx, epiglottis and laryngeal/thyroid cartilages are normal. . Thyroid gland: Thyroid gland is normal in size and attenuation without discernible nodules. Prevertebral space: Prevertebral soft tissues are normal without a fluid collection or abnormality. . Lymph nodes: Numerous esyq-fb-qyjzzvtdxb enlarged reactive lymph nodes in the neck including multiple enhancing retropharyngeal lymph nodes. . Vasculature: Neck vessels enhance normally bilaterally. Retropharyngeal course of the carotid arteries. . Paranasal sinuses/mastoid air cells: No significant mucoperiosteal thickening in the visualized paranasal sinuses. . Other findings: Platelike atelectasis in the RIGHT middle lobe and calcific granuloma on the LEFT. Orbits are grossly normal. Visualized intracranial structures are unremarkable. . Bones: Mild degenerative changes in the visualized spine. IMPRESSION: 1. Findings suspicious for severe upper respiratory tract infection and extensive reactive lymphadenitis. 2. Unremarkable paranasal sinuses without evidence of significant acute or chronic sinus infection. 3. Other nonemergent/incidental findings as described.
[2023-09-23 00:43] LABS: Bordetella Pertussis Not Detected (NotDetected); Chlamydophila Pneumoniae, PCR Not Detected (NotDetected); Coronavirus 19, PCR Not Detected (NotDetected); Coronavirus 229E Not Detected (NotDetected); Coronavirus NL63 Not Detected (NotDetected); Coronavirus OC43 Not Detected (NotDetected); Coronovirus HKU1,PCR Not Detected (NotDetected); Human Metapneumovirus Not Detected (NotDetected); Influenza A, PCR Not Detected (NotDetected); Influenza AH1, 2009 Not Detected (NotDetected); Influenza AH1, PCR Not Detected (NotDetected); Influenza AH3,PCR Not Detected (NotDetected); Influenza B, PCR Not Detected (NotDetected); Mycoplasma Pneumoniae, PCR Not Detected (NotDetected); Parainfluenza 1, PCR Not Detected (NotDetected); Parainfluenza 2, PCR Not Detected (NotDetected); Parainfluenza 3, PCR Not Detected (NotDetected); Parainfluenza 4, PCR Not Detected (NotDetected); Respiratory Syncytial Virus Not Detected (NotDetected); Rhinovirus/Enterovirus Not Detected (NotDetected)
[2023-09-23 00:49] LABS: Basophils # 0.3 K/mm3 (0-0.2); Basophils % 2.2 % (0.1-2.0); Eosinophils # 0.3 K/mm3 (0.0-0.4); Eosinophils % 2.1 % (0.1-12.0); Hematocrit 46.3 % (37.0-47.0); Hemoglobin 14.7 g/dL (12.2-16.2); Lymphocytes # 1.5 K/mm3 (0.7-4.5); Lymphocytes % 12.3 % (10-50); Mean Corpuscular HGB Conc 31.8 g/dL (31.8-35.4); Mean Corpuscular Hemoglobin 28.3 pg (27.0-31.2); Mean Corpuscular Volume 88.8 fl (81-99); Mean Platelet Volume 8.3 fl (7.4-10.4); Monocytes # 0.5 K/mm3 (0.1-1.0); Monocytes % 4.1 % (1.7-9.3); Neutrophils # 9.7 K/mm3 (1.8-7.8); Neutrophils % 79.3 % (37.0-80.0); Platelet Count 322 K/mm3 (142-424); Red Blood Count 5.21 M/mm3 (4.20-5.40); Red Cell Distribution Width 15.4 % (11.5-17.5); White Blood Count 12.2 K/mm3 (4.8-10.8)
[2023-09-23 00:51] LABS: Strep Scrn Group A (Rapid) Negative (Negative)
[2023-09-23] MEDS: MORPHINE 4MG/ML SYRINGE 4 MG IV (00:51)
[2023-09-23] MEDS: LIDOCAINE 2% VISCOUS SOL 15ML UDC 15 ML PO (00:51)
[2023-09-23] MEDS: ACETAMINOPHEN 1,000MG/100ML VIAL 1000 MG IV (00:51)
[2023-09-23] MEDS: 0.9 % SODIUM CHLORIDE 1000ML 1,000 ML 999 ML IV ×2 (00:51→02:00)
[2023-09-23 00:59] LABS: Alanine Aminotransferase 43 U/L (12-78); Albumin Level 4.6 g/dl (3.5-5.0); Albumin/Globulin Ratio 1.3 (1.1-1.8); Alkaline Phosphatase 115 U/L (38-126); Anion Gap 18.6 mEq/L (5-15); Aspartate Amino Transferase 48 U/L (14-36); Blood Urea Nitrogen 10 mg/dl (7-17); Calcium 9.7 mg/dl (8.4-10.2); Carbon Dioxide 24 mmol/L (22.0-30.0); Chloride 94 mmol/L (98-107); Creatinine Clearance Estimated 185 mL/min (50-200); Estimated Glomerular Filt Rate 107 ml/min (>60); GFR (African American) 129 ML/MIN (>60); Globulin 3.6 g/dL (1.3-3.2); Glucose 140 mg/dl (74-100); HCG Qualitative, Serum Negative (Negative); Monoscreen (Rapid) Negative (Negative); Potassium 3.6 mmoL/L (3.5-5.1); Sodium 133 mmol/L (136-145); Total Protein,Serum 8.2 g/dl (6.3-8.2)
[2023-09-23 01:11] LABS: Magnesium 1.6 mg/dl (1.6-2.3)
[2023-09-23 01:32] LABS: Microscopic, Urine URINE MICROSCOPIC (MICROSCOPIC)
[2023-09-23 01:33] LABS: Appearance,Urine CLEAR (Clear); Blood, Urine Negative (Negative); Color,Urine YELLOW (Yellow); Glucose,Urine (UA) 2+ (Negative); Ketones,Urine 1+ (Negative); Leukocyte Esterase,Urine Negative (Negative); Nitrate,Urine Negative (Negative); PH,Urine 5.5 (5.0-8.5); Protein,Urine Negative (Negative); Specific Gravity, Urine 1.025 (1.005-1.030); Urobilinogen,Urine 0.2 EU/dl (0.2)
[2023-09-23] MEDS: IOPAMIDOL-370 (76%);100ML BOTTLE 75 ML IV (01:33)
[2023-09-23] MEDS: SODIUM CHLORIDE 0.9% 10ML SYR (RAD ONLY) 10 ML IV (01:33)
[2023-09-23 01:41] LABS: Bilirubin,Urine Negative (Negative)
[2023-09-23 01:48] LABS: Bacteria,Urine 1+ /lpf; Squamous Epithelial Cell,Urine Occasional #/hpf (0-5); Yeast,Urine Occasional /lpf
[2023-09-23 02:14] LABS: Adenovirus,PCR Detected (NotDetected)
--- NOTE | 2023-09-23 03:04 | PC.NURSE ---
radiology contacted re: read time
[2023-09-23 03:53] VITALS: BP 119/68; PULSE 83; RESP 16; TEMP 36.7; O2SAT 93
[2023-09-23 04:15] VITALS: BP 119/78; PULSE 78; RESP 16; TEMP 36.8; O2SAT 97
== END 2023-09-23 04:25 | disposition home or self-care (01) ==
PROVIDERS: Emergency Provider Emergency Medicine; PCP Internal Medicine
DX: E86.0 Dehydration (principal); B34.0 Adenovirus infection, unspecified; R59.0 Localized enlarged lymph nodes; R50.9 Fever, unspecified; M54.2 Cervicalgia; E87.1 Hypo-osmolality and hyponatremia; H92.03 Otalgia, bilateral; R07.0 Pain in throat; E11.9 Type 2 diabetes mellitus without complications; Z79.84 Long term (current) use of oral hypoglycemic drugs; Z79.85 Long-term (current) use of injectable non-insulin antidiabetic drugs
CPT/HCPCS: 70470; 70486; 70491; 80053; 81001; 83735; 84703; 85025; 86318; 87040; 87430; 87581; 87632; 87635; 87798; 96361; 96374; 96375; 99285; J0131; Q9967

== ENCOUNTER 2023-10-26 10:35 | Outpatient (POV) | payer OTHER, SELFPAY | END 2023-10-26 23:59 | disposition home or self-care (01) | LOC: SC 10:35 | PROVIDERS: Visit Provider Specialist/Technologist | DX: Z00.00 Encounter for general adult medical examination without abnormal findings (principal) ==

== ENCOUNTER 2023-11-01 09:57 | Outpatient (CLI) | payer OTHER, SELFPAY ==
[2023-11-01 17:46] LABS: Hemoglobin A1C 6.2 % (4.0-6.0)
[2023-11-01 18:33] LABS: Alanine Aminotransferase 37 U/L (12-78); Albumin Level 4.3 g/dl (3.5-5.0); Albumin/Globulin Ratio 1.5 (1.1-1.8); Alkaline Phosphatase 107 U/L (38-126); Anion Gap 17.1 mEq/L (5-15); Aspartate Amino Transferase 45 U/L (14-36); Bilirubin,Total 0.6 mg/dl (0.2-1.3); Blood Urea Nitrogen 15 mg/dl (7-17); Calcium 9.5 mg/dl (8.4-10.2); Carbon Dioxide 27 mmol/L (22.0-30.0); Chloride 98 mmol/L (98-107); Chol/HDL Ratio 3.6 (1-3.5); Cholesterol 131 mg/dl (140-200); Estimated Glomerular Filt Rate 132 ml/min (>60); GFR (African American) 159 ML/MIN (>60); Globulin 2.8 g/dL (1.3-3.2); Glucose 106 mg/dl (74-100); HDL Cholesterol 36 mg/dl (40-60); Potassium 4.1 mmoL/L (3.5-5.1); Sodium 138 mmol/L (136-145); Total Protein,Serum 7.1 g/dl (6.3-8.2); Triglycerides 267 mg/dl (30-150); VLDL Cholesterol 53 mg/dL (0-40)
[2023-11-01 18:54] LABS: Direct LDL Cholesterol 58.63 mg/dL (100-129)
[2023-11-01 18:57] LABS: Microalbumin/Creatinine Ratio 5.3
[2023-11-01 19:02] LABS: Creatinine,Urine Random 151 mg/dL (Not Estab.)
== END 2023-11-01 23:59 | disposition home or self-care (01) ==
LOC: LAB.DROPOF 11-02 09:57
PROVIDERS: PCP Internal Medicine; Visit Provider Internal Medicine
DX: E78.5 Hyperlipidemia, unspecified (principal); I25.10 Atherosclerotic heart disease of native coronary artery without angina pectoris; I10 Essential (primary) hypertension; E11.59 Type 2 diabetes mellitus with other circulatory complications
CPT/HCPCS: 80053; 80061; 82043; 82570; 83036

== ENCOUNTER 2024-02-03 09:13 | Outpatient (CLI) | payer OTHER, SELFPAY ==
--- NOTE | 2024-02-03 09:34 | FL_ITS ---
FINAL REPORT CLINICAL HISTORY: upper quad pain 2.51 fluoro time 151.42 mGy FINDINGS: UPPER GI EXAM HISTORY: . Epigastric pain. Nausea. PROCEDURE: The patient ingested barium. Effervescent crystals were also administered. 20 fluoroscopic spot films were obtained. Fluoro time: 2 minutes 51 seconds Radiation exposure in Reference air Kerma:151.42 mGy. FINDINGS: No esophageal stricture is identified. There is a small sliding-type hiatal hernia. No gastroesophageal reflux was demonstrated during the exam. A 13 mm barium tablet passes through the stomach. There is retained debris throughout the stomach with delayed emptying of the stomach. The duodenum is poorly visualized. IMPRESSION: Small hiatal hernia. Retained debris within the stomach with delayed emptying of the stomach, consider gastroparesis. Films reviewed , interpreted and dictated by Dr. Sosa. Transcribed by Aditya lOguin PA-C. Reviewed, Interpreted and Dictated by Momo Sosa III, MD Transcribed by YAO Fisher Authenticated and [facility]
[2024-02-03] MEDS: E-Z-GASII EFFERVESCENT GRANULES;1PK 1 EACH PO (10:01)
[2024-02-03] MEDS: BARIUM SULFATE (E-Z-HD 340GM);135ML BOTTLE 135 ML PO (10:01)
[2024-02-03] MEDS: BARIUM SULFATE(LIQUID E-Z-PAQUE);355ML BOTTLE 355 ML PO (10:01)
== END 2024-02-03 23:59 | disposition home or self-care (01) ==
LOC: RAD 09:14
PROVIDERS: PCP Internal Medicine; Visit Provider Internal Medicine
DX: R10.12 Left upper quadrant pain (principal)
CPT/HCPCS: 74221; 74246

== ENCOUNTER 2024-06-12 19:10 | Outpatient (CLI) | payer OTHER, SELFPAY ==
[2024-06-12 17:56] LABS: Basophils % 0.3 % (0.1-2.0); Eosinophils # 0.3 K/mm3 (0.0-0.4); Eosinophils % 2.4 % (0.1-12.0); Hematocrit 46.6 % (37.0-47.0); Hemoglobin 14.5 g/dL (12.2-16.2); Lymphocytes # 3.8 K/mm3 (0.7-4.5); Lymphocytes % 34.6 % (10-50); Mean Corpuscular HGB Conc 31.1 g/dL (31.8-35.4); Mean Corpuscular Hemoglobin 27.7 pg (27.0-31.2); Mean Corpuscular Volume 89.1 fl (81-99); Mean Platelet Volume 10.3 fl (7.4-10.4); Monocytes # 0.5 K/mm3 (0.1-1.0); Monocytes % 4.6 % (1.7-9.3); Neutrophils # 6.3 K/mm3 (1.8-7.8); Neutrophils % 57.8 % (37.0-80.0); Platelet Count 405 K/mm3 (142-424); Red Blood Count 5.23 M/mm3 (4.20-5.40); Red Cell Distribution Width 14.5 % (11.5-17.5); White Blood Count 10.9 K/mm3 (4.8-10.8)
[2024-06-12 19:04] LABS: Erythrocyte Sedimentation Rate 8 mm/hr (0-20)
== END 2024-06-12 23:59 | disposition home or self-care (01) ==
LOC: LAB.DROPOF 19:11
PROVIDERS: PCP Internal Medicine; Visit Provider Internal Medicine
DX: N64.4 Mastodynia (principal); I10 Essential (primary) hypertension
CPT/HCPCS: 85025; 85651

== ENCOUNTER 2024-06-18 07:42 | Outpatient (CLI) | payer OTHER, SELFPAY ==
--- NOTE | 2024-06-18 07:42 | MM_ITS ---
PROCEDURE INFORMATION: Exam: US Right Breast, Complete MG Bilateral Screening 3D Mammography Exam date and time: 06/18/2024 8:27 AM Age: 48 years old Clinical indication: Screening examination; Breast pain; Right TECHNIQUE: Imaging protocol: Complete ultrasound of all four quadrants of the right breast and the retroareolar regions, including ultrasound of the axilla when performed. Bilateral Screening tomosynthesis and 2D mammography including computer-aided detection (CAD) when performed. COMPARISON: MG MM DIG SCREENING MAMM BI W/CAD 06/18/2024 8:07 AM FINDINGS: MAMMOGRAPHY: Breast composition: The breasts are almost entirely fatty. Mass: None. Architectural distortion: None. Calcifications: None. Asymmetric density: None. Skin thickening: None. Axillary adenopathy: None ULTRASOUND: Right solid masses: None. Right cystic masses: None. Right architectural distortion: None. Right acoustical shadowing: None. Right skin thickening: None. Right axillary adenopathy: None. Left solid masses: None. Left cystic masses: None. Left architectural distortion: None. Left acoustical shadowing: None. Left skin thickening: None. Left axillary adenopathy: None. IMPRESSION: No mammographic or sonographic evidence of malignancy. Annual screening is recommended unless otherwise clinically indicated. ASSESSMENT: BI-RADS Category 1: Negative.
== END 2024-06-18 23:59 | disposition home or self-care (01) ==
LOC: RAD 07:42
PROVIDERS: PCP Internal Medicine; Visit Provider Obstetrics & Gynecology
DX: Z12.31 Encounter for screening mammogram for malignant neoplasm of breast (principal); N64.4 Mastodynia
CPT/HCPCS: 76641; 77063; 77067

== ENCOUNTER → 2024-11-19 13:53 | Outpatient (REF) | payer SELFPAY ==
--- OUTSIDE RECORDS SUMMARY | 2024-11-19 13:56 | XMS_ITS | Clinical Summary ---
Author Organization [facility] Address [address] [place] [address] Care Team Providers Care Undertaker Helper Name Role Phone Unavailable Primary Care Provider Unavailabl e Social History Tobacco Use Types Packs/Day Years Used Date Smoking Tobacco: Never Assessed Abuse Screen Answer Date Recorded Unsafe at Home or Work/School Not on file Feels Threatened by Someone? Not on file 02/2023 Does Anyone Keep You from Co ntacting Others or Doint Things Outside the Home? Not on file 01/26/2023 Physical Sign of Abuse Present Not on file 1 Housing Stability Answer Date Recorded Current Living Arrangements Not on file 01/16 Potentially Unsafe Housing Conditions Not on jonathan e 01/26/2023 Family and Community Support Answer Jm e Recorded Help with Day-to-Day Activities Not on file 01/26/2023 Lonely or Isolated Not on file 01/26/2023 Employment Answer Date Recorded Do you want help finding or keeping work or a brook b? Not on file 01/26/2023 Disabilities Answer Date Recorded Concentrating, Remembering, or Making Decisions Difficulty Not on file 01/26/2023 Doing Errands Independently Difficulty Not on fi le 01/26/2023 Education Answer Date Recorded Help with school or training? Not on file Preferred Language Not on file 01/26/2023 Comments Unknown Sex and Gender Information Value Date Recorded Sex Assigned at Not on file Legal Sex Female 12:15 PM EDT Gender Identity Not on file Sexual Orientation Not on file Last Filed Vital Signs Vital Sign Reading Time Taken Comments Blood Pressure 101/71 01/09/2014 9:45 AM EDT Pulse - - Temperature - - Respiratory Rate - - Oxygen Saturation - - Inhaled Oxygen Concentration - - Weight 110 kg (242 lb) 01/09/2014 9:45 AM EDT Height 157.5 cm (5' 2 ) 01/09/2014 9:45 AM EDT Body Mass Index 44.26 01/09/2014 9:45 AM EDT Plan of Treatment Health Maintenance Due Date Last Done Comments ANNUAL PHYSICAL 1975 Annual Gynecologic Pelvic an d Breast Exam 1975 HEPATITIS C SCREENING 1975 TDAP/TD VACCINES (1 - Tdap) 07/01/1994 MAMMOGRAM 2015 COLOGUARD 07/01/2020 COLON CANCER SCREENING 5 YEA R SIGMOIDOSCOPY 07/01/2020 COLONOSCOPY 07/01/2020 COLORECTAL CANCER SCREENING 07/01/2020 CT COLONOGRAPHY 07/01/2020 FECAL OCCULT BLOOD TEST 07/01/2020 FIT Testing (1 year) 07/01/2020 COVID-19 Vaccine ( - 2023-2 5 season) 2023 INFLUENZA VACCINE 01/16/2025 Pneumococcal Vaccine 0-49 Aged Out No longer eligible based on patient's age to complete this topic
--- OUTSIDE RECORDS SUMMARY | 2024-11-19 13:56 | XMS_ITS | Clinical Summary ---
Author Organization [facility] [address] [place] [address] Care Team Providers Care Hedge Fund Trader Name Role Phone Herbert Haro MD Primary Care Provider [phone] Family History Medical History Relation Name Comments Hypertension Brother Cardiac disorder Father Diabetes Father Hypertension Father Cardiac disorder Mother Hypertension Mother Lung disease Mother Multiple sclerosis Mother Relation Name Status Comments Brother Father Mother Social History Tobacco Use Types Packs/Day Years Used Date Smoking Tobacco: Former Alcohol Use Standard Drinks/Week Comments No 0 (1 standard drink = 0.6 oz pur e alcohol) Comments Unknown Sex and Gender Information Value Date Recorded Sex Assigned at Not on file Legal Sex Female 7:37 PM EDT Gender Identity Not on file Sexual Orientation Not on file Last Filed Vital Signs Vital Sign Reading Time Taken Comments Blood Pressure 132/86 06/29/2019 9:08 AM EDT Pulse 69 06/07/2019 1:21 PM EST Temperature - - Respiratory Rate 16 06/04/2019 11:21 AM EST Oxygen Saturation - - Inhaled Oxygen Concentration - - Weight 111 kg (244 lb 7.8 oz) 06/29/2019 9:08 AM EDT Height 157.5 cm (5' 2 ) 06/29/2019 9:08 AM EDT Body Mass Index 44.72 06/29/2019 9:08 AM EDT Plan of Treatment Not on file Care Teams Hedge Fund Trader Relationship Specialty Start Date End Date Herbert Haro MD [facility] [address] [place] [address] PCP - General 08/29/20
[2024-11-19 14:03] LABS: COC Drug Screen Collection Only
[2024-11-20 08:12] LABS: Hep A Ab, Total Negative (Negative); Measles Antibodies, IgG 99.0 AU/mL (Immune >16.4); Mumps Abs, IgG <9.0 AU/mL (Immune >10.9); Rubella Antibodies, IgG <0.90 index (Immune >0.99)
== END ==
LOC: LAB 13:53
CPT/HCPCS: 36415; 86480; 86706; 86708; 86735; 86762; 86765; 86787

== ENCOUNTER 2024-11-29 07:47 | Outpatient (CLI) | payer OTHER, SELFPAY ==
--- OUTSIDE RECORDS SUMMARY | 2024-11-29 07:48 | XMS_ITS | Clinical Summary ---
Author Organization [facility] Address [address] [place] [address] Care Team Providers Care Lubricating Specialist Name Role Phone Unavailable Primary Care Provider [...]
--- OUTSIDE RECORDS SUMMARY | 2024-11-29 07:48 | XMS_ITS | Clinical Summary ---
Author Organization [facility] [address] [place] [address] Care Team Providers Care Sensitized Paper Tester Name Role Phone Herbert Haro MD Primary Care Provider [phone] Family History Medical History Relation Name Comments [...] of Treatment Not on file Care Teams Sensitized Paper Tester Relationship Specialty Start Date End Date Herbert Haro MD [facility] [address] [place] [address] PCP - General 08/29/20
--- NOTE | 2024-11-29 08:15 | MR_ITS ---
FINAL REPORT TECHNIQUE: Multiplanar and multisequence imaging of the brain was obtained without contrast. CLINICAL HISTORY: History of CVA, possible new CVA 2 weeks ago memory loss 2-3 week ago recent tia COMPARISON: None FINDINGS: Brain parenchymal: There is no mass effect or midline shift. There is focal encephalomalacia in the right cerebellum, that likely represents a remote infarct. No other foci of abnormal signal are identified. The cerebellum and brainstem are without acute abnormality. Ventricles: The ventricles are symmetric in size and configuration without hydrocephalus. Extra-axial spaces: No extra-axial fluid collections. Diffusion imaging: No areas of restricted diffusion to suggest acute infarct. Flow voids: Flow voids within the major intracranial vessels are preserved. Soft tissues: A small amount of fluid is present in the left mastoid air cells. IMPRESSION: Focal encephalomalacia in the right cerebellum, likely secondary to a remote infarct. No acute intracranial abnormality. Reviewed, Interpreted and Dictated by Darling Kyle MD Transcribed by Maddison Paige Authenticated and [facility]
--- NOTE | 2024-11-29 09:00 | CA_ITS ---
FINAL REPORT TECHNIQUE: Coy scale, color and spectral doppler images of the bilateral carotid arteries were obtained. CLINICAL HISTORY: DM, CAD, HTN, HLD, CVA COMPARISON: None FINDINGS: Peak systolic velocity in the right internal carotid artery is 67 cm/sec. The internal carotid to common carotid artery ratio is 1.1. There is no significant carotid artery stenosis and mild plaque formation. The right vertebral artery is normal in direction. Peak systolic velocity in the left internal carotid artery is 56 cm/sec. The internal carotid to common carotid artery ratio is 0.8. There is no significant carotid artery stenosis and mild plaque formation. The left vertebral artery is normal in direction. IMPRESSION: No ultrasound evidence of hemodynamically significant carotid artery stenosis. Normal peak systolic velocities and normal internal to common carotid artery ratios bilaterally. Reviewed, Interpreted and Dictated by Darling Kyle MD Transcribed by Maddison Paige Authenticated and [facility]
== END 2024-11-29 23:59 | disposition home or self-care (01) ==
LOC: RAD 07:47
PROVIDERS: PCP Internal Medicine; Visit Provider Internal Medicine
DX: G93.89 Other specified disorders of brain (principal); I63.9 Cerebral infarction, unspecified; E11.9 Type 2 diabetes mellitus without complications; I25.10 Atherosclerotic heart disease of native coronary artery without angina pectoris; E78.5 Hyperlipidemia, unspecified; Q21.12 Patent foramen ovale; G45.9 Transient cerebral ischemic attack, unspecified; Z86.73 Personal history of transient ischemic attack (TIA), and cerebral infarction without residual deficits
CPT/HCPCS: 70551; 93880